=== PATIENT | male | born 1945 | race Caucasian/White ===

== ENCOUNTER → 2016-07-20 | Outpatient (REF) | payer MEDICARE ==
[~2016-07-20] MED LIST: ASPI81TA85 PO; ATEN25TA PO; LISI5TAB PO; SIMV80TA PO; TORS20TA2 PO; WARF6TAB14 PO
[2016-07-20 11:44] LABS: BASO % 0.3 % (0.0-1.0); EOS # 0.1 K/mm3 (0.0-0.50); EOS % 3.6 % (0.0-3.0); LARGE UNSTAINED CELL # 0.1 K/mm3 (0.0-0.4); LARGE UNSTAINED CELL % 2.5 % (0.0-4.0); LYMPH # 0.8 K/mm3 (1.5-4.5); LYMPH % 17.2 % (24.0-44.0); MEAN CORPUSCULAR HGB CONC 33.1 g/dl (32.0-36.5); MEAN CORPUSCULAR VOLUME 93.5 fl (80.0-96.0); MONO # 0.2 K/mm3 (0.0-0.8); MONO % 5.9 % (0.0-5.0); NEUTROPHILS # 2.8 K/mm3 (1.8-7.7); NEUTROPHILS % 70.5 % (36.0-66.0); PLATELET COUNT, AUTOMATED 190 k/mm3 (150-450); RED CELL DISTRIBUTION WIDTH 13.6 % (11.5-14.5); WHITE BLOOD COUNT 3.9 K/mm3 (4.0-10.0)
[2016-07-20 11:57] LABS: ALBUMIN 3.8 GM/DL (3.2-5.2); ALBUMIN/GLOBULIN RATIO 1.12 (1.00-1.93); BILIRUBIN,TOTAL 0.4 MG/DL (0.2-1.0); CREATININE FOR GFR 1.31 MG/DL (0.70-1.30); GLOMERULAR FILTRATION RATE 57.6 (>42); POTASSIUM SERUM 4.6 MEQ/L (3.5-5.1); TOTAL PROTEIN 7.2 GM/DL (6.4-8.2)
== END ==
LOC: M SFHCPLAZ 08:58
PROVIDERS: ATTEND Family Medicine
DX: I10 Essential (primary) hypertension (principal); R73.01 Impaired fasting glucose; E55.9 Vitamin D deficiency, unspecified

== ENCOUNTER → 2016-12-11 | Outpatient (REF) | payer MEDICARE ==
[2016-12-11 11:27] LABS: BASO % 0.6 % (0.0-1.0); EOS # 0.1 K/mm3 (0.0-0.50); EOS % 4.3 % (0.0-3.0); LARGE UNSTAINED CELL % 1.4 % (0.0-4.0); LYMPH # 0.6 K/mm3 (1.5-4.5); LYMPH % 18.2 % (24.0-44.0); MEAN CORPUSCULAR HEMOGLOBIN 32.8 pg (27.0-33.0); MEAN CORPUSCULAR HGB CONC 34.3 g/dl (32.0-36.5); MEAN CORPUSCULAR VOLUME 95.7 fl (80.0-96.0); MONO # 0.2 K/mm3 (0.0-0.8); MONO % 5.8 % (0.0-5.0); NEUTROPHILS # 2.2 K/mm3 (1.8-7.7); NEUTROPHILS % 69.7 % (36.0-66.0); PLATELET COUNT, AUTOMATED 199 k/mm3 (150-450); RED CELL DISTRIBUTION WIDTH 13.6 % (11.5-14.5); RETIC HEMOGLOBIN CONTENT CHr 32.3 PG (24-36); RETICULOCYTE ABSOLUTE ADVIA212 61 x10(9)/L (17-77); WHITE BLOOD COUNT 3.2 K/mm3 (4.0-10.0)
[2016-12-11 11:40] LABS: CHOLESTEROL LEVEL 114 MG/DL (<200); FERRITIN 105 NG/ML (26-388); PERCENT SATURATION 34.1 % (19.7-50.0); TOTAL IRON BINDING CAPACITY 267 UG/DL (250-450); TOTAL PROTEIN 7.4 GM/DL (6.4-8.2); TRIGLYCERIDES LEVEL 70 MG/DL (<150)
[2016-12-13 00:06] LABS: FREE KAPPA LIGHT CHAINS SERUM 129.3 mg/L (3.3-19.4); KAPPA/LAMBDA RATIO SERUM 7.61 (0.26-1.65)
[2016-12-13 11:59] LABS: ALBUMIN % 55.4 % (55.8-66.1)
[2016-12-13 12:00] LABS: GAMMA GLOBULIN % 20.7 % (11.1-18.8)
== END ==
LOC: M SFHCPLAZ 08:18
PROVIDERS: ATTEND Family Medicine
DX: D72.819 Decreased white blood cell count, unspecified (principal); D47.2 Monoclonal gammopathy; E78.2 Mixed hyperlipidemia; Z12.5 Encounter for screening for malignant neoplasm of prostate; E55.9 Vitamin D deficiency, unspecified
CPT/HCPCS: 36415; 80061; 82306; 82728; 83550; 83883; 83970; 84165; 85025; 85046; G0103

== ENCOUNTER → 2017-03-22 | Outpatient (CLI) | payer MEDICARE ==
[2017-03-22 13:35] LABS: MEAN CORPUSCULAR HEMOGLOBIN 31.8 pg (27.0-33.0); MEAN CORPUSCULAR HGB CONC 33.8 g/dl (32.0-36.5); MEAN CORPUSCULAR VOLUME 94.2 fl (80.0-96.0); PLATELET COUNT, AUTOMATED 219 10^3/uL (150-450)
[2017-03-22 14:07] LABS: ANION GAP 5 MEQ/L (8-16); BLOOD UREA NITROGEN 33 MG/DL (7-18); CALCIUM LEVEL 9.3 MG/DL (8.8-10.2); CARBON DIOXIDE LEVEL 31 MEQ/L (21-32); CHLORIDE LEVEL 107 MEQ/L (98-107); CREATININE FOR GFR 1.23 MG/DL (0.70-1.30); GLOMERULAR FILTRATION RATE > 60.0 (>42); GLUCOSE, FASTING 96 MG/DL (83-110); POTASSIUM SERUM 4.7 MEQ/L (3.5-5.1); SODIUM LEVEL 143 MEQ/L (136-145)
== END ==
LOC: M LAB 13:09
PROVIDERS: ATTEND Internal Medicine Cardiovascular Disease
DX: I47.2 Ventricular tachycardia (principal)

== ENCOUNTER → 2017-04-04 | Outpatient (CLI) | payer MEDICARE ==
[2017-04-04 13:03] LABS: INR 1.39
== END ==
LOC: M LAB 11:53
PROVIDERS: ATTEND Internal Medicine Cardiovascular Disease
DX: I48.91 Unspecified atrial fibrillation (principal)

== ENCOUNTER → 2017-04-16 | Outpatient (REF) | payer MEDICARE ==
[2017-04-16 11:25] LABS: BASO % 0.5 % (0.0-1.0); EOS # 0.2 10^3/uL (0.0-0.50); IMMATURE GRANULOCYTE % 0.2 % (0-0); LYMPH # 0.6 10^3/uL (1.5-4.5); MEAN CORPUSCULAR HEMOGLOBIN 31.6 pg (27.0-33.0); MEAN CORPUSCULAR HGB CONC 33.7 g/dl (32.0-36.5); MEAN CORPUSCULAR VOLUME 93.9 fl (80.0-96.0); MONO # 0.3 10^3/uL (0.0-0.8); MONO % 7.2 % (0.0-5.0); NEUTROPHILS # 3.2 10^3/uL (1.8-7.7); NEUTROPHILS % 74.1 % (36.0-66.0); PLATELET COUNT, AUTOMATED 210 10^3/uL (150-450); RED CELL DISTRIBUTION WIDTH 13.3 % (11.5-14.5); WHITE BLOOD COUNT 4.3 10^3/uL (4.0-10.0)
[2017-04-16 12:00] LABS: ALBUMIN 3.9 GM/DL (3.2-5.2); ALBUMIN/GLOBULIN RATIO 1.08 (1.00-1.93); ALKALINE PHOSPHATASE 86 U/L (45-117); ALT/SGPT 23 U/L (12-78); ANION GAP 6 MEQ/L (8-16); AST/SGOT 21 U/L (7-37); BILIRUBIN,TOTAL 0.5 MG/DL (0.2-1.0); BLOOD UREA NITROGEN 33 MG/DL (7-18); CALCIUM LEVEL 9.2 MG/DL (8.8-10.2); CARBON DIOXIDE LEVEL 29 MEQ/L (21-32); CHLORIDE LEVEL 109 MEQ/L (98-107); CREATININE FOR GFR 1.14 MG/DL (0.70-1.30); GLOMERULAR FILTRATION RATE > 60.0 (>42); GLUCOSE, FASTING 97 MG/DL (83-110); IMMUNOGLOBULIN G 1630 MG/DL (681-1648); IMMUNOGLOBULIN M 61.9 MG/DL (40-230); POTASSIUM SERUM 4.2 MEQ/L (3.5-5.1); SODIUM LEVEL 144 MEQ/L (136-145); TOTAL PROTEIN 7.5 GM/DL (6.4-8.2)
== END ==
LOC: M SFHCPLAZ 08:40
PROVIDERS: ATTEND Family Medicine
DX: D47.2 Monoclonal gammopathy (principal); E55.9 Vitamin D deficiency, unspecified; R73.01 Impaired fasting glucose

== ENCOUNTER → 2017-08-16 | Outpatient (REF) | payer MEDICARE ==
[2017-08-16 11:30] LABS: BASO % 0.2 % (0.0-1.0); EOS # 0.1 10^3/uL (0.0-0.50); HEMATOCRIT 38.2 % (42.0-52.0); IMMATURE GRANULOCYTE % 0.2 % (0-3.0); LYMPH # 0.8 10^3/uL (1.5-4.5); LYMPH % 17.2 % (24.0-44.0); MEAN CORPUSCULAR HEMOGLOBIN 31.4 pg (27.0-33.0); MEAN CORPUSCULAR VOLUME 92.3 fl (80.0-96.0); MONO # 0.3 10^3/uL (0.0-0.8); MONO % 7.4 % (0.0-5.0); NEUTROPHILS # 3.1 10^3/uL (1.8-7.7); PLATELET COUNT, AUTOMATED 202 10^3/uL (150-450); RED BLOOD COUNT 4.14 10^6/uL (4.30-6.10); RED CELL DISTRIBUTION WIDTH 13.2 % (11.5-14.5); WHITE BLOOD COUNT 4.4 10^3/uL (4.0-10.0)
[2017-08-16 12:24] LABS: ALBUMIN 3.9 GM/DL (3.2-5.2); ALBUMIN/GLOBULIN RATIO 1.03 (1.00-1.93); ALKALINE PHOSPHATASE 93 U/L (45-117); ALT/SGPT 22 U/L (12-78); ANION GAP 4 MEQ/L (8-16); AST/SGOT 18 U/L (7-37); BILIRUBIN,TOTAL 0.5 MG/DL (0.2-1.0); BLOOD UREA NITROGEN 29 MG/DL (7-18); CALCIUM LEVEL 9.4 MG/DL (8.8-10.2); CARBON DIOXIDE LEVEL 31 MEQ/L (21-32); CHLORIDE LEVEL 108 MEQ/L (98-107); CREATININE FOR GFR 1.25 MG/DL (0.70-1.30); GLOMERULAR FILTRATION RATE > 60.0 (>42); GLUCOSE, FASTING 87 MG/DL (70-100); MAGNESIUM LEVEL 2.4 MG/DL (1.8-2.4); POTASSIUM SERUM 4.6 MEQ/L (3.5-5.1); PSA SCREENING 1.48 NG/ML (< 4.0); SODIUM LEVEL 143 MEQ/L (136-145); TOTAL PROTEIN 7.7 GM/DL (6.4-8.2)
[2017-08-18 00:06] LABS: FREE KAPPA LIGHT CHAINS SERUM 143.3 mg/L (3.3-19.4); FREE LAMBDA LIGHT CHAINS SERUM 15.7 mg/L (5.7-26.3); KAPPA/LAMBDA RATIO SERUM 9.13 (0.26-1.65)
[2017-08-18 00:06] LABS: INSULIN LEVEL 14.6 uIU/mL (2.6-24.9)
[2017-08-20 00:06] LABS: FREE KAPPA LIGHT CHAINS URINE 5.33 mg/L (1.35-24.19); FREE LAMBDA LIGHT CHAINS URINE 0.19 mg/L (0.24-6.66); KAPPA/LAMBDA RATIO URINE 28.05 (2.04-10.37)
== END ==
LOC: M SFHCPLAZ 09:53
DX: Z12.5 Encounter for screening for malignant neoplasm of prostate (principal); D47.2 Monoclonal gammopathy; E78.2 Mixed hyperlipidemia
CPT/HCPCS: 83525

== ENCOUNTER 2017-12-30 15:53 | Inpatient (IN) | payer MEDICARE ==
[~2017-12-30 15:53] MED LIST changes: +ACETAMINOPHEN 500 MG TAB PO; -ASPI81TA85 PO; -ATEN25TA PO; -LISI5TAB PO; +NORCO, ANEXSIA 5/325MG TABLET (HYDROcodone/ACETAMINOPHEN) PO; +ONDANSETRON 4MG/2ML VIAL (J2405) IV; -SIMV80TA PO; -TORS20TA2 PO; -WARF6TAB14 PO
[2017-12-30] MEDS ORDERED: HEPARIN SOD (PORCINE) 5000 UNITS/ML VIAL IV (16:00)
[2017-12-30 17:40] LABS: BASO % 0.4 % (0.0-1.0); EOS # 0.1 10^3/uL (0.0-0.50); EOS % 2.2 % (0.0-3.0); HEMATOCRIT 38.3 % (42.0-52.0); HEMOGLOBIN 13.4 g/dl (13.5-17.5); IMMATURE GRANULOCYTE % 0.6 % (0-3.0); LYMPH # 0.9 10^3/uL (1.5-4.5); LYMPH % 19.4 % (24.0-44.0); MEAN CORPUSCULAR HEMOGLOBIN 32.6 pg (27.0-33.0); MEAN CORPUSCULAR VOLUME 93.2 fl (80.0-96.0); MONO # 0.4 10^3/uL (0.0-0.8); MONO % 8.4 % (0.0-5.0); NEUTROPHILS # 3.2 10^3/uL (1.8-7.7); PLATELET COUNT, AUTOMATED 207 10^3/uL (150-450); RED BLOOD COUNT 4.11 10^6/uL (4.30-6.10); RED CELL DISTRIBUTION WIDTH 12.7 % (11.5-14.5); WHITE BLOOD COUNT 4.6 10^3/uL (4.0-10.0)
[2017-12-30] MEDS: SUPREP BOWEL PREP PO (17:50)
[2017-12-30 17:57] LABS: INR 2.23; PROTHROMBIN TIME 25.1 SECONDS (12.1-14.4)
[2017-12-30 17:57] LABS: PARTIAL THROMBOPLASTIN TIME 34.3 SECONDS (25.4-37.6)
[2017-12-30] MEDS: HEPARIN DRIP 25,000 UNITS in APPROPRIATE DILUENT 1 EA IV (19:50)
[2017-12-30] MEDS: SOTALOL 40MG PER 1/2 TABLET PO (22:09)
[2017-12-30] MEDS: SIMVASTATIN 40 MG TAB PO (22:09)
[2017-12-30 22:23] LABS: PARTIAL THROMBOPLASTIN TIME 85.1 SECONDS (25.4-37.6)
[2017-12-31 00:35] LABS: ALBUMIN 4.2 GM/DL (3.2-5.2); ALBUMIN/GLOBULIN RATIO 1.14 (1.00-1.93); ALKALINE PHOSPHATASE 76 U/L (45-117); ALT/SGPT 22 U/L (12-78); ANION GAP 8 MEQ/L (8-16); AST/SGOT 17 U/L (7-37); BILIRUBIN,TOTAL 0.6 MG/DL (0.2-1.0); BLOOD UREA NITROGEN 30 MG/DL (7-18); CALCIUM LEVEL 9.7 MG/DL (8.8-10.2); CARBON DIOXIDE LEVEL 29 MEQ/L (21-32); CHLORIDE LEVEL 105 MEQ/L (98-107); CREATININE FOR GFR 1.38 MG/DL (0.70-1.30); GLOMERULAR FILTRATION RATE 53.9 (>42); GLUCOSE, FASTING 93 MG/DL (70-100); POTASSIUM SERUM 4.3 MEQ/L (3.5-5.1); SODIUM LEVEL 142 MEQ/L (136-145); TOTAL PROTEIN 7.9 GM/DL (6.4-8.2)
[2017-12-31 03:15] LABS: PARTIAL THROMBOPLASTIN TIME 192.8 SECONDS (25.4-37.6)
[2017-12-31] MEDS: TORSEMIDE 20 MG TAB PO ×2 (05:45→17:14)
[2017-12-31 07:06] LABS: BASO % 0.5 % (0.0-1.0); EOS # 0.2 10^3/uL (0.0-0.50); EOS % 2.5 % (0.0-3.0); IMMATURE GRANULOCYTE % 0.3 % (0-3.0); LYMPH # 1.4 10^3/uL (1.5-4.5); LYMPH % 22.1 % (24.0-44.0); MEAN CORPUSCULAR HEMOGLOBIN 31.9 pg (27.0-33.0); MEAN CORPUSCULAR VOLUME 91.1 fl (80.0-96.0); MONO # 0.4 10^3/uL (0.0-0.8); MONO % 6.5 % (0.0-5.0); NEUTROPHILS # 4.4 10^3/uL (1.8-7.7); NEUTROPHILS % 68.1 % (36.0-66.0); PLATELET COUNT, AUTOMATED 230 10^3/uL (150-450); RED BLOOD COUNT 4.39 10^6/uL (4.30-6.10); RED CELL DISTRIBUTION WIDTH 12.6 % (11.5-14.5); WHITE BLOOD COUNT 6.4 10^3/uL (4.0-10.0)
[2017-12-31 07:17] LABS: INR 2.12; PROTHROMBIN TIME 24.2 SECONDS (12.1-14.4)
[2017-12-31 08:08] LABS: ALBUMIN 4.3 GM/DL (3.2-5.2); ALKALINE PHOSPHATASE 81 U/L (45-117); ALT/SGPT 23 U/L (12-78); ANION GAP 7 MEQ/L (8-16); AST/SGOT 22 U/L (7-37); BILIRUBIN,TOTAL 0.7 MG/DL (0.2-1.0); BLOOD UREA NITROGEN 27 MG/DL (7-18); CARBON DIOXIDE LEVEL 30 MEQ/L (21-32); CHLORIDE LEVEL 101 MEQ/L (98-107); CREATININE FOR GFR 1.37 MG/DL (0.70-1.30); GLOMERULAR FILTRATION RATE 54.4 (>42); GLUCOSE, FASTING 95 MG/DL (70-100); POTASSIUM SERUM 4.1 MEQ/L (3.5-5.1); SODIUM LEVEL 138 MEQ/L (136-145); TOTAL PROTEIN 8.8 GM/DL (6.4-8.2)
[2017-12-31 09:56] LABS: ALBUMIN/GLOBULIN RATIO 1.05 (1.00-1.93)
[2017-12-31] MEDS: INFLUENZA VIRUS VACCINE HIGH DOSE 0.5 ML SYRINGE (90662) IM (11:50)
[2017-12-31] MEDS: ASPIRIN 81 MG ENTERIC TAB PO (11:50)
[2017-12-31] MEDS: SOTALOL 40MG PER 1/2 TABLET PO ×2 (11:51→21:37)
[2017-12-31] MEDS: ISOSORBIDE MON. (IMDUR) 30 MG XR TAB PO (11:51)
[2017-12-31] MEDS ORDERED: PROPOFOL 200 MG/20 ML VIAL ×3 (14:57→15:54)
[2017-12-31 15:35] LABS: PARTIAL THROMBOPLASTIN TIME 33.7 SECONDS (25.4-37.6)
[2017-12-31] MEDS ORDERED: ePHEDrine SULFATE 25 MG/5 ML(5MG/ML) SYRINGE (15:55)
[2017-12-31] MEDS: WARFARIN SOD 3 MG TAB PO (18:29)
[2017-12-31] MEDS: HEPARIN DRIP 25,000 UNITS in APPROPRIATE DILUENT 1 EA IV (18:30)
[2017-12-31] MEDS: SIMVASTATIN 40 MG TAB PO (21:37)
[2018-01-01 01:01] LABS: PARTIAL THROMBOPLASTIN TIME 86.2 SECONDS (25.4-37.6)
[2018-01-01] MEDS: TORSEMIDE 20 MG TAB PO ×2 (05:37→17:36)
[2018-01-01 07:03] LABS: PARTIAL THROMBOPLASTIN TIME 101.1 SECONDS (25.4-37.6)
[2018-01-01] MEDS: ISOSORBIDE MON. (IMDUR) 30 MG XR TAB PO (08:29)
[2018-01-01] MEDS: SOTALOL 40MG PER 1/2 TABLET PO ×2 (08:29→20:41)
[2018-01-01] MEDS: ASPIRIN 81 MG ENTERIC TAB PO (08:29)
[2018-01-01 09:00] LABS: INR 2.35; PROTHROMBIN TIME 26.2 SECONDS (12.1-14.4)
[2018-01-01 16:19] LABS: PARTIAL THROMBOPLASTIN TIME 100.1 SECONDS (25.4-37.6)
[2018-01-01] MEDS: HEPARIN DRIP 25,000 UNITS in APPROPRIATE DILUENT 1 EA IV (16:25)
[2018-01-01] MEDS: WARFARIN SOD 3 MG TAB PO (17:36)
[2018-01-01] MEDS: SIMVASTATIN 40 MG TAB PO (20:40)
[2018-01-02] MEDS: TORSEMIDE 20 MG TAB PO ×2 (05:55→17:21)
[2018-01-02 06:37] LABS: INR 2.36; PROTHROMBIN TIME 26.3 SECONDS (12.1-14.4)
[2018-01-02 06:40] LABS: PARTIAL THROMBOPLASTIN TIME 113.9 SECONDS (25.4-37.6)
[2018-01-02] MEDS: SOTALOL 40MG PER 1/2 TABLET PO ×2 (08:22→21:08)
[2018-01-02] MEDS: ASPIRIN 81 MG ENTERIC TAB PO (08:22)
[2018-01-02] MEDS: ISOSORBIDE MON. (IMDUR) 30 MG XR TAB PO (08:22)
[2018-01-02 11:22] LABS: HEMATOCRIT 33.4 % (42.0-52.0); HEMOGLOBIN 11.7 g/dl (13.5-17.5); MEAN CORPUSCULAR HEMOGLOBIN 31.7 pg (27.0-33.0); MEAN CORPUSCULAR VOLUME 90.5 fl (80.0-96.0); PLATELET COUNT, AUTOMATED 151 10^3/uL (150-450); RED BLOOD COUNT 3.69 10^6/uL (4.30-6.10); RED CELL DISTRIBUTION WIDTH 12.6 % (11.5-14.5); WHITE BLOOD COUNT 3.7 10^3/uL (4.0-10.0)
[2018-01-02 15:46] LABS: PARTIAL THROMBOPLASTIN TIME 69.5 SECONDS (25.4-37.6)
[2018-01-02] MEDS: HEPARIN DRIP 25,000 UNITS in APPROPRIATE DILUENT 1 EA IV (16:41)
[2018-01-02] MEDS ORDERED: WARFARIN SOD 3 MG TAB PO (17:00)
[2018-01-02] MEDS: WARFARIN SOD 3 MG TAB PO (17:21)
[2018-01-02] MEDS: SIMVASTATIN 40 MG TAB PO (21:08)
[2018-01-02 22:06] LABS: PARTIAL THROMBOPLASTIN TIME 64.3 SECONDS (25.4-37.6)
[2018-01-03] MEDS: ANUSOL HC 25MG SUPP PR (01:39)
[2018-01-03] MEDS: TORSEMIDE 20 MG TAB PO (05:10)
[2018-01-03 06:39] LABS: HEMATOCRIT 35.9 % (42.0-52.0); HEMOGLOBIN 12.6 g/dl (13.5-17.5); MEAN CORPUSCULAR HEMOGLOBIN 31.9 pg (27.0-33.0); MEAN CORPUSCULAR HGB CONC 35.1 g/dl (32.0-36.5); MEAN CORPUSCULAR VOLUME 90.9 fl (80.0-96.0); PLATELET COUNT, AUTOMATED 164 10^3/uL (150-450); RED BLOOD COUNT 3.95 10^6/uL (4.30-6.10); RED CELL DISTRIBUTION WIDTH 12.8 % (11.5-14.5)
[2018-01-03 06:53] LABS: INR 2.18; PARTIAL THROMBOPLASTIN TIME 32.1 SECONDS (25.4-37.6); PROTHROMBIN TIME 24.7 SECONDS (12.1-14.4)
[2018-01-03 07:08] LABS: ALBUMIN 3.7 GM/DL (3.2-5.2); ALBUMIN/GLOBULIN RATIO 0.86 (1.00-1.93); ALKALINE PHOSPHATASE 82 U/L (45-117); ALT/SGPT 24 U/L (12-78); ANION GAP 4 MEQ/L (8-16); AST/SGOT 20 U/L (7-37); BILIRUBIN,TOTAL 0.3 MG/DL (0.2-1.0); BLOOD UREA NITROGEN 21 MG/DL (7-18); CALCIUM LEVEL 9.3 MG/DL (8.8-10.2); CARBON DIOXIDE LEVEL 30 MEQ/L (21-32); CHLORIDE LEVEL 105 MEQ/L (98-107); CREATININE FOR GFR 1.24 MG/DL (0.70-1.30); GLOMERULAR FILTRATION RATE > 60.0 (>42); GLUCOSE, FASTING 102 MG/DL (70-100); POTASSIUM SERUM 3.8 MEQ/L (3.5-5.1); SODIUM LEVEL 139 MEQ/L (136-145)
[2018-01-03] MEDS: ASPIRIN 81 MG ENTERIC TAB PO (09:05)
[2018-01-03] MEDS: SOTALOL 40MG PER 1/2 TABLET PO (09:05)
[2018-01-03] MEDS: ISOSORBIDE MON. (IMDUR) 30 MG XR TAB PO (09:05)
[2018-01-03 10:33] LABS: INR 2.31; PROTHROMBIN TIME 25.8 SECONDS (12.1-14.4)
== END 2018-01-03 11:24 | disposition home or self-care (01) | DRG 949 ==
LOC: M MSPAV 01-02 22:33
PROC: 0DBP8ZX Excision of Rectum, Via Natural or Artificial Opening Endoscopic, Diagnostic (ICD-10-PCS; principal; 2017-12-31 15:30)
DX: Z51.81 Encounter for therapeutic drug level monitoring (principal); I50.32 Chronic diastolic (congestive) heart failure; Z68.43 Body mass index [BMI] 50.0-59.9, adult; I13.0 Hypertensive heart and chronic kidney disease with heart failure and stage 1 through stage 4 chronic kidney disease, or unspecified chronic kidney disease; I25.810 Atherosclerosis of coronary artery bypass graft(s) without angina pectoris; E66.9 Obesity, unspecified; G47.33 Obstructive sleep apnea (adult) (pediatric); Z79.01 Long term (current) use of anticoagulants; Z95.2 Presence of prosthetic heart valve; M17.0 Bilateral primary osteoarthritis of knee; N18.3 Chronic kidney disease, stage 3 (moderate); E53.8 Deficiency of other specified B group vitamins; E55.9 Vitamin D deficiency, unspecified; E78.2 Mixed hyperlipidemia; D64.9 Anemia, unspecified; K57.30 Diverticulosis of large intestine without perforation or abscess without bleeding; K62.1 Rectal polyp

== ENCOUNTER → 2018-01-27 | Outpatient (CLI) | payer MEDICARE ==
[2018-01-27 09:33] LABS: ALBUMIN 3.9 GM/DL (3.2-5.2); ALBUMIN/GLOBULIN RATIO 1.22 (1.00-1.93); ALKALINE PHOSPHATASE 76 U/L (45-117); ALT/SGPT 23 U/L (12-78); ANION GAP 6 MEQ/L (8-16); AST/SGOT 18 U/L (7-37); BILIRUBIN,TOTAL 0.5 MG/DL (0.2-1.0); BLOOD UREA NITROGEN 21 MG/DL (7-18); CALCIUM LEVEL 9.6 MG/DL (8.8-10.2); CARBON DIOXIDE LEVEL 31 MEQ/L (21-32); CHLORIDE LEVEL 108 MEQ/L (98-107); CREATININE FOR GFR 1.16 MG/DL (0.70-1.30); GLOMERULAR FILTRATION RATE > 60.0 (>42); GLUCOSE, FASTING 93 MG/DL (70-100); POTASSIUM SERUM 4.2 MEQ/L (3.5-5.1); SODIUM LEVEL 145 MEQ/L (136-145); TOTAL PROTEIN 7.1 GM/DL (6.4-8.2)
[2018-01-27 09:37] LABS: HEMATOCRIT 35.6 % (42.0-52.0); HEMOGLOBIN 11.9 g/dl (13.5-17.5); MEAN CORPUSCULAR HEMOGLOBIN 31.5 pg (27.0-33.0); MEAN CORPUSCULAR HGB CONC 33.4 g/dl (32.0-36.5); MEAN CORPUSCULAR VOLUME 94.2 fl (80.0-96.0); PLATELET COUNT, AUTOMATED 182 10^3/uL (150-450); RED BLOOD COUNT 3.78 10^6/uL (4.30-6.10); RED CELL DISTRIBUTION WIDTH 13.1 % (11.5-14.5); WHITE BLOOD COUNT 4.3 10^3/uL (4.0-10.0)
[2018-01-27 09:54] LABS: INR 3.38
[2018-01-27 10:01] LABS: ERYTHROCYTE SEDIMENTATION RATE 49 mm/hr (0-20)
== END ==
LOC: M LAB 07:54
DX: E78.00 Pure hypercholesterolemia, unspecified (principal); I11.9 Hypertensive heart disease without heart failure; E11.9 Type 2 diabetes mellitus without complications

== ENCOUNTER → 2018-01-27 | Outpatient (CLI) | payer MEDICARE ==
[2018-01-27 09:32] LABS: ALBUMIN 3.8 GM/DL (3.2-5.2); ALBUMIN/GLOBULIN RATIO 1.12 (1.00-1.93); ALKALINE PHOSPHATASE 82 U/L (45-117); ALT/SGPT 20 U/L (12-78); ANION GAP 6 MEQ/L (8-16); AST/SGOT 18 U/L (7-37); BILIRUBIN,TOTAL 0.5 MG/DL (0.2-1.0); BLOOD UREA NITROGEN 22 MG/DL (7-18); CALCIUM LEVEL 9.6 MG/DL (8.8-10.2); CARBON DIOXIDE LEVEL 30 MEQ/L (21-32); CHLORIDE LEVEL 109 MEQ/L (98-107); CREATININE FOR GFR 1.19 MG/DL (0.70-1.30); FERRITIN 69 NG/ML (26-388); GLOMERULAR FILTRATION RATE > 60.0 (>42); GLUCOSE, FASTING 92 MG/DL (70-100); IRON (FE) 82 UG/DL (65-175); PERCENT SATURATION 30.6 % (19.7-50.0); POTASSIUM SERUM 3.9 MEQ/L (3.5-5.1); SODIUM LEVEL 145 MEQ/L (136-145); TOTAL IRON BINDING CAPACITY 268 UG/DL (250-450); TOTAL PROTEIN 7.2 GM/DL (6.4-8.2)
[2018-01-27 09:39] LABS: BASO % 0.2 % (0.0-1.0); EOS # 0.2 10^3/uL (0.0-0.50); EOS % 3.8 % (0.0-3.0); HEMATOCRIT 35.3 % (42.0-52.0); IMMATURE GRANULOCYTE % 0.2 % (0-3.0); LYMPH # 0.7 10^3/uL (1.5-4.5); LYMPH % 16.2 % (24.0-44.0); MEAN CORPUSCULAR HEMOGLOBIN 32.1 pg (27.0-33.0); MEAN CORPUSCULAR VOLUME 94.4 fl (80.0-96.0); MONO # 0.3 10^3/uL (0.0-0.8); MONO % 7.1 % (0.0-5.0); NEUTROPHILS # 3.1 10^3/uL (1.8-7.7); NEUTROPHILS % 72.5 % (36.0-66.0); PLATELET COUNT, AUTOMATED 188 10^3/uL (150-450); RED BLOOD COUNT 3.74 10^6/uL (4.30-6.10); RED CELL DISTRIBUTION WIDTH 13.2 % (11.5-14.5); WHITE BLOOD COUNT 4.3 10^3/uL (4.0-10.0)
[2018-01-27 09:54] LABS: INR 3.31; PROTHROMBIN TIME 34.4 SECONDS (12.1-14.4)
[2018-01-27 09:55] LABS: PARTIAL THROMBOPLASTIN TIME 41.1 SECONDS (25.4-37.6)
== END ==
LOC: M LAB 07:48
DX: D64.9 Anemia, unspecified (principal)
CPT/HCPCS: 71046

== ENCOUNTER → 2018-01-31 | Outpatient (CLI) | payer MEDICARE ==
[2018-01-31 10:26] LABS: INR 3.24; PROTHROMBIN TIME 33.8 SECONDS (12.1-14.4)
[2018-01-31 10:27] LABS: PARTIAL THROMBOPLASTIN TIME 41.4 SECONDS (25.4-37.6)
== END ==
LOC: M LAB 09:15
DX: Z95.2 Presence of prosthetic heart valve (principal)

== ENCOUNTER 2018-02-03 06:38 | Inpatient (IN) | payer MEDICARE ==
[~2018-02-03 06:38] MED LIST changes: -ACETAMINOPHEN 500 MG TAB PO; +LIDOCAINE 1% MDV 20ML VIAL SQ; -NORCO, ANEXSIA 5/325MG TABLET (HYDROcodone/ACETAMINOPHEN) PO; -ONDANSETRON 4MG/2ML VIAL (J2405) IV
[2018-02-03] MEDS ORDERED: LR 1,000 ML IV (06:45)
[2018-02-03 07:21] LABS: INR 1.62; PROTHROMBIN TIME 19.5 SECONDS (12.1-14.4)
[2018-02-03] MEDS ORDERED: MIDAZOLAM INJ 2 MG/2 ML VIAL (J2250) As Ordered ×2 (08:01→09:57)
[2018-02-03] MEDS ORDERED: fentaNYL 100 MCG/2 ML INJECTION (J3010) As Ordered ×2 (08:01→09:57)
[2018-02-03] MEDS: VANCOMYCIN HCL 1,000 MG, VIAL MATE ADAPTER 1 EACH in D5W 250 ML IV ×2 (09:00→20:02)
[2018-02-03 09:09] LABS: INR 1.86; PROTHROMBIN TIME 21.8 SECONDS (12.1-14.4)
[2018-02-03] MEDS ORDERED: PROPOFOL 200 MG/20 ML VIAL As Ordered (09:57)
[2018-02-03] MEDS ORDERED: SEVOFLURANE INHAL SOLN 250 ML BTL As Ordered (09:57)
[2018-02-03] MEDS ORDERED: fentaNYL 250 MCG/5 ML INJECTION (J3010) As Ordered (09:57)
[2018-02-03] MEDS ORDERED: DESFLURANE 240 ML INHALANT As Ordered (09:57)
[2018-02-03] MEDS ORDERED: ONDANSETRON 4MG/2ML VIAL (J2405) As Ordered (09:57)
[2018-02-03] MEDS ORDERED: dexameTHASONE 4 MG/ML 1ML VIAL (J1100) As Ordered (09:57)
[2018-02-03] MEDS ORDERED: ROCURONIUM BROMIDE 50 MG/5 ML VIAL As Ordered (09:57)
[2018-02-03] MEDS ORDERED: METOCLOPRAMIDE INJ 10MG/2ML VIAL (J2765) As Ordered (09:57)
[2018-02-03] MEDS ORDERED: LIDOCAINE 2% INJ 100 MG/5 ML SDV (FOR ANES.) As Ordered (09:57)
[2018-02-03] MEDS ORDERED: GLYCOPYRROLATE INJ 0.2 MG/ML 2 ML VIAL As Ordered (10:23)
[2018-02-03] MEDS: CLINDAMYCIN INJ 900MG/6ML VIAL As Ordered (10:23)
[2018-02-03] MEDS ORDERED: NEOSTIGMINE 10 MG/10 ML VIAL (J2710) As Ordered (10:23)
[2018-02-03] MEDS: EPINEPHrine INJ 1 MG/ML 1ML AMP As Ordered (10:24)
[2018-02-03] MEDS: TRANEXAMIC ACID 100 MG/ML 10ML VIAL As Ordered (10:24)
[2018-02-03] MEDS: BUPIVACAINE LIPOSOME/PF 1.3% 20 ML VIAL (13.3MG/ML)(EXPAREL) As Ordered (11:13)
[2018-02-03] MEDS: BUPIVACAINE HCL 0.25% 30 ML VIAL As Ordered (11:14)
[2018-02-03] MEDS ORDERED: PHENYLephrine HCL 500 MCG/5 ML (100MCG/ML) SYRINGE (J2370) As Ordered (11:22)
[2018-02-03] MEDS ORDERED: MORPHINE 1MG/ML IN 0.9% NACL 100ML IV BAG As Ordered (11:33)
[2018-02-03] MEDS ORDERED: ONDANSETRON 4MG/2ML VIAL (J2405) IV ×2 (12:00→12:15)
[2018-02-03] MEDS ORDERED: PERCOCET 5MG/325MG TAB PO (12:00)
[2018-02-03] MEDS ORDERED: fentaNYL 100 MCG/2 ML INJECTION (J3010) IV (12:00)
[2018-02-03] MEDS ORDERED: NALOXONE INJ 0.4 MG/1 ML VIAL (J2310) IV (12:15)
[2018-02-03] MEDS ORDERED: diphenhydrAMINE INJ 50MG/ML VIAL (J1200) IV (12:15)
[2018-02-03] MEDS ORDERED: MORPHINE 1MG/ML IN 0.9% NACL 100ML IV BAG IV (12:15)
[2018-02-03] MEDS ORDERED: FLEET ENEMA PR (12:15)
[2018-02-03] MEDS: LR 1,000 ML IV ×2 (12:15→15:04)
[2018-02-03] MEDS ORDERED: ACETAMINOPHEN TAB 650MG DOSE (2X325MG) PO (12:15)
[2018-02-03] MEDS ORDERED: NALBUPHINE HCL 10 MG/ML AMP (J2300) IV (12:15)
[2018-02-03] MEDS ORDERED: EPIDURAL/PCA KEYS XX (12:15)
[2018-02-03] MEDS: ACETAMINOPHEN 500 MG TAB PO (15:03)
[2018-02-03] MEDS ORDERED: WARFARIN SOD 5 MG TAB PO (17:00)
[2018-02-03] MEDS: LISINOPRIL 20 MG TAB PO (17:17)
[2018-02-03] MEDS: TORSEMIDE 20 MG TAB PO (17:17)
[2018-02-03] MEDS: ISOSORBIDE MON. (IMDUR) 30 MG XR TAB PO (17:17)
[2018-02-03] MEDS: WARFARIN SOD 3 MG TAB PO (17:18)
[2018-02-03] MEDS: SIMVASTATIN 40 MG TAB PO (20:03)
[2018-02-03] MEDS: SOTALOL 40MG PER 1/2 TABLET PO (20:03)
[2018-02-04] MEDS: LR 1,000 ML IV (00:45)
[2018-02-04] MEDS: HEPARIN SOD (PORCINE) 5000 UNITS/ML VIAL SQ ×3 (05:57→21:38)
[2018-02-04 06:52] LABS: HEMOGLOBIN 10.8 g/dl (13.5-17.5); MEAN CORPUSCULAR HGB CONC 32.7 g/dl (32.0-36.5); MEAN CORPUSCULAR VOLUME 97.6 fl (80.0-96.0); PLATELET COUNT, AUTOMATED 253 10^3/uL (150-450); RED BLOOD COUNT 3.38 10^6/uL (4.30-6.10); WHITE BLOOD COUNT 12.8 10^3/uL (4.0-10.0)
[2018-02-04 07:01] LABS: PROTHROMBIN TIME 22.1 SECONDS (12.1-14.4)
[2018-02-04 07:14] LABS: ALBUMIN 3.5 GM/DL (3.2-5.2); ANION GAP 6 MEQ/L (8-16); BLOOD UREA NITROGEN 27 MG/DL (7-18); CALCIUM LEVEL 8.9 MG/DL (8.8-10.2); CARBON DIOXIDE LEVEL 31 MEQ/L (21-32); CHLORIDE LEVEL 105 MEQ/L (98-107); CREATININE FOR GFR 2.23 MG/DL (0.70-1.30); GLUCOSE, FASTING 131 MG/DL (70-100); PHOSPHORUS LEVEL 4.3 MG/DL (2.5-4.9); POTASSIUM SERUM 4.3 MEQ/L (3.5-5.1); SODIUM LEVEL 142 MEQ/L (136-145)
[2018-02-04] MEDS: MOM 30ML SUSPENSION UDC PO (09:00)
[2018-02-04] MEDS: ONDANSETRON 4MG/2ML VIAL (J2405) IV (09:18)
[2018-02-04] MEDS: MIRALAX *UNIT DOSE* 17GM PACKET PO (11:03)
[2018-02-04] MEDS: SOTALOL 40MG PER 1/2 TABLET PO ×2 (11:03→21:37)
[2018-02-04] MEDS: TORSEMIDE 20 MG TAB PO (11:04)
[2018-02-04] MEDS: LISINOPRIL 20 MG TAB PO (11:04)
[2018-02-04] MEDS: ISOSORBIDE MON. (IMDUR) 30 MG XR TAB PO (11:05)
[2018-02-04] MEDS: SENOKOT S TAB PO ×2 (11:05→21:37)
[2018-02-04] MEDS: PERCOCET 5MG/325MG TAB PO ×2 (11:08→12:02)
[2018-02-04] MEDS: ONDANSETRON 4 MG TAB (S0181) PO (13:40)
[2018-02-04] MEDS ORDERED: ACETAMINOPHEN 500 MG TAB PO (15:45)
[2018-02-04] MEDS: FLEET ENEMA PR (15:45)
[2018-02-04] MEDS: WARFARIN SOD 3 MG TAB PO (16:51)
[2018-02-04] MEDS: METOCLOPRAMIDE INJ 10MG/2ML VIAL (J2765) IV ×2 (16:51→21:38)
[2018-02-04] MEDS: traMADol 50 MG TAB PO ×2 (16:52→21:38)
[2018-02-04] MEDS: ACETAMINOPHEN 500 MG TAB PO (21:37)
[2018-02-04] MEDS: SIMVASTATIN 40 MG TAB PO (21:38)
[2018-02-05] MEDS: traMADol 50 MG TAB PO ×3 (01:39→09:09)
[2018-02-05] MEDS: ONDANSETRON 4 MG TAB (S0181) PO (03:04)
[2018-02-05] MEDS: HEPARIN SOD (PORCINE) 5000 UNITS/ML VIAL SQ ×3 (05:26→21:12)
[2018-02-05] MEDS: ACETAMINOPHEN 500 MG TAB PO ×3 (05:27→21:13)
[2018-02-05 06:57] LABS: HEMATOCRIT 31.7 % (42.0-52.0); HEMOGLOBIN 10.5 g/dl (13.5-17.5); MEAN CORPUSCULAR HEMOGLOBIN 32.1 pg (27.0-33.0); MEAN CORPUSCULAR HGB CONC 33.1 g/dl (32.0-36.5); MEAN CORPUSCULAR VOLUME 96.9 fl (80.0-96.0); PLATELET COUNT, AUTOMATED 220 10^3/uL (150-450); RED BLOOD COUNT 3.27 10^6/uL (4.30-6.10)
[2018-02-05 07:12] LABS: INR 2.44
[2018-02-05 07:23] LABS: ALBUMIN 2.9 GM/DL (3.2-5.2); ANION GAP 9 MEQ/L (8-16); BLOOD UREA NITROGEN 58 MG/DL (7-18); CALCIUM LEVEL 8.4 MG/DL (8.8-10.2); CARBON DIOXIDE LEVEL 25 MEQ/L (21-32); CHLORIDE LEVEL 104 MEQ/L (98-107); CREATININE FOR GFR 3.79 MG/DL (0.70-1.30); GLOMERULAR FILTRATION RATE 16.8 (>42); GLUCOSE, FASTING 138 MG/DL (70-100); PHOSPHORUS LEVEL 4.7 MG/DL (2.5-4.9); POTASSIUM SERUM 4.1 MEQ/L (3.5-5.1); SODIUM LEVEL 138 MEQ/L (136-145)
[2018-02-05] MEDS: MOM 30ML SUSPENSION UDC PO (08:30)
[2018-02-05] MEDS: MIRALAX *UNIT DOSE* 17GM PACKET PO (08:30)
[2018-02-05] MEDS: METOCLOPRAMIDE INJ 10MG/2ML VIAL (J2765) IV ×4 (08:31→21:12)
[2018-02-05] MEDS: LISINOPRIL 20 MG TAB PO (08:34)
[2018-02-05] MEDS: SENOKOT S TAB PO ×2 (08:35→21:14)
[2018-02-05] MEDS: SOTALOL 40MG PER 1/2 TABLET PO ×2 (08:35→21:13)
[2018-02-05] MEDS: ISOSORBIDE MON. (IMDUR) 30 MG XR TAB PO (08:35)
[2018-02-05] MEDS: TORSEMIDE 20 MG TAB PO (09:00)
[2018-02-05] MEDS: BISACODYL 10 MG SUPP PR ×2 (10:59→21:14)
[2018-02-05] MEDS: LR 1,000 ML IV ×2 (11:00→21:12)
[2018-02-05] MEDS: WARFARIN SOD 3 MG TAB PO (17:40)
[2018-02-05] MEDS: SIMVASTATIN 40 MG TAB PO (21:14)
[2018-02-06] MEDS: ACETAMINOPHEN 500 MG TAB PO ×3 (05:38→21:06)
[2018-02-06] MEDS: LR 1,000 ML IV (05:38)
[2018-02-06 06:53] LABS: HEMATOCRIT 30.4 % (42.0-52.0); MEAN CORPUSCULAR HEMOGLOBIN 31.9 pg (27.0-33.0); MEAN CORPUSCULAR HGB CONC 32.9 g/dl (32.0-36.5); MEAN CORPUSCULAR VOLUME 97.1 fl (80.0-96.0); PLATELET COUNT, AUTOMATED 228 10^3/uL (150-450); RED BLOOD COUNT 3.13 10^6/uL (4.30-6.10); RED CELL DISTRIBUTION WIDTH 14.2 % (11.5-14.5); WHITE BLOOD COUNT 8.2 10^3/uL (4.0-10.0)
[2018-02-06 07:04] LABS: INR 4.27; PROTHROMBIN TIME 42.1 SECONDS (12.1-14.4)
[2018-02-06 07:24] LABS: ALBUMIN 2.5 GM/DL (3.2-5.2); ANION GAP 11 MEQ/L (8-16); BLOOD UREA NITROGEN 81 MG/DL (7-18); CARBON DIOXIDE LEVEL 26 MEQ/L (21-32); CHLORIDE LEVEL 100 MEQ/L (98-107); CREATININE FOR GFR 5.66 MG/DL (0.70-1.30); GLOMERULAR FILTRATION RATE 10.6 (>42); GLUCOSE, FASTING 108 MG/DL (70-100); PHOSPHORUS LEVEL 6.3 MG/DL (2.5-4.9); POTASSIUM SERUM 4.7 MEQ/L (3.5-5.1); SODIUM LEVEL 137 MEQ/L (136-145)
[2018-02-06] MEDS: METOCLOPRAMIDE INJ 10MG/2ML VIAL (J2765) IV (07:30)
[2018-02-06] MEDS: NS 1,000 ML IV ×3 (08:00→18:12)
[2018-02-06] MEDS: MOM 30ML SUSPENSION UDC PO (08:36)
[2018-02-06] MEDS: BISACODYL 10 MG SUPP PR ×2 (08:41→20:23)
[2018-02-06] MEDS: SENOKOT S TAB PO ×2 (08:41→21:06)
[2018-02-06] MEDS: ISOSORBIDE MON. (IMDUR) 30 MG XR TAB PO (08:47)
[2018-02-06] MEDS: MIRALAX *UNIT DOSE* 17GM PACKET PO (08:48)
[2018-02-06] MEDS: SOTALOL 40MG PER 1/2 TABLET PO ×2 (08:52→20:23)
[2018-02-06 12:11] LABS: LACTIC ACID SEPSIS PROTOCOL 1.1 MMOL/L (0.4-2.0)
[2018-02-06] MEDS ORDERED: WARFARIN SOD 3 MG TAB PO (17:00)
[2018-02-06 18:10] LABS: ANION GAP 10 MEQ/L (8-16); BLOOD UREA NITROGEN 88 MG/DL (7-18); CALCIUM LEVEL 7.8 MG/DL (8.8-10.2); CARBON DIOXIDE LEVEL 24 MEQ/L (21-32); CHLORIDE LEVEL 104 MEQ/L (98-107); CREATININE FOR GFR 5.55 MG/DL (0.70-1.30); GLOMERULAR FILTRATION RATE 10.8 (>42); GLUCOSE, FASTING 96 MG/DL (70-100); MAGNESIUM LEVEL 2.7 MG/DL (1.8-2.4); POTASSIUM SERUM 4.3 MEQ/L (3.5-5.1); SODIUM LEVEL 138 MEQ/L (136-145)
[2018-02-06] MEDS: SIMVASTATIN 40 MG TAB PO (21:06)
[2018-02-06 23:26] LABS: BACTERIA, URINE AUTO NEGATIVE (NEGATIVE); MUCUS, URINE SMALL (NEGATIVE); RBC, URINE AUTO 131 /HPF (0-3); SQUAMOUS EPITHELIAL CELL UR AU 0 /HPF (0-6); WBC, URINE AUTO 5 /HPF (0-3)
[2018-02-06 23:30] LABS: CHLORIDE,RANDOM URINE 45 MEQ/L
[2018-02-06 23:30] LABS: SODIUM,RANDOM URINE < 10 MEQ/L
[2018-02-07] MEDS: NS 1,000 ML IV ×3 (01:32→08:23)
[2018-02-07 05:21] LABS: HEMATOCRIT 27.7 % (42.0-52.0); HEMOGLOBIN 9.2 g/dl (13.5-17.5); MEAN CORPUSCULAR HEMOGLOBIN 31.7 pg (27.0-33.0); MEAN CORPUSCULAR HGB CONC 33.2 g/dl (32.0-36.5); MEAN CORPUSCULAR VOLUME 95.5 fl (80.0-96.0); PLATELET COUNT, AUTOMATED 216 10^3/uL (150-450); RED CELL DISTRIBUTION WIDTH 13.9 % (11.5-14.5)
[2018-02-07] MEDS: ACETAMINOPHEN 500 MG TAB PO ×3 (05:46→21:06)
[2018-02-07 05:48] LABS: ALBUMIN 2.1 GM/DL (3.2-5.2); ANION GAP 8 MEQ/L (8-16); BLOOD UREA NITROGEN 102 MG/DL (7-18); CARBON DIOXIDE LEVEL 26 MEQ/L (21-32); CHLORIDE LEVEL 105 MEQ/L (98-107); CREATININE FOR GFR 6.19 MG/DL (0.70-1.30); GLOMERULAR FILTRATION RATE 9.5 (>42); GLUCOSE, FASTING 96 MG/DL (70-100); PHOSPHORUS LEVEL 6.8 MG/DL (2.5-4.9); POTASSIUM SERUM 4.5 MEQ/L (3.5-5.1); SODIUM LEVEL 139 MEQ/L (136-145)
[2018-02-07 07:40] LABS: PROTHROMBIN TIME 65.8 SECONDS (12.1-14.4)
[2018-02-07] MEDS: MIRALAX *UNIT DOSE* 17GM PACKET PO (09:00)
[2018-02-07] MEDS: SOTALOL 40MG PER 1/2 TABLET PO ×2 (09:00→21:00)
[2018-02-07] MEDS: ISOSORBIDE MON. (IMDUR) 30 MG XR TAB PO (09:00)
[2018-02-07] MEDS: PHYTONADIONE IV (09:39)
[2018-02-07] MEDS: NS IV (09:39)
[2018-02-07] MEDS: BISACODYL 10 MG SUPP PR ×2 (09:39→21:06)
[2018-02-07] MEDS: SENOKOT S TAB PO ×2 (09:39→21:06)
[2018-02-07 13:14] LABS: TYPE AND SCREEN 1 1
[2018-02-07] MEDS ORDERED: LIDOCAINE 2% MDV 20 ML VIAL As Ordered (14:17)
[2018-02-07] MEDS ORDERED: HEPARIN 1,000 UNITS/ML 10ML VIAL (FOR RADIOLOGY& DIALYSIS ONLY) As Ordered (14:17)
[2018-02-07] MEDS: NS 0.45% 1,000 ML IV (17:02)
[2018-02-07 17:43] LABS: PROTHROMBIN TIME 18.3 SECONDS (12.1-14.4)
[2018-02-07 18:04] LABS: CHOLESTEROL LEVEL 86 MG/DL (<200); HDL CHOLESTEROL 20 MG/DL (>40); LDL CHOLESTEROL 36 MG/DL (<100); NON-HDL-C 66 MG/DL; TRIGLYCERIDES LEVEL 152 MG/DL (<150)
[2018-02-07 18:15] LABS: ESTIMATED AVERAGE GLUCOSE 91 MG/DL (60-110); HEMOGLOBIN A1c 4.8 %
[2018-02-07] MEDS: SIMVASTATIN 40 MG TAB PO (21:06)
[2018-02-07] MEDS ORDERED: PILL CRUSHER/CUTTER 1 EACH XX (21:15)
[2018-02-08 04:50] LABS: HEMATOCRIT 26.6 % (42.0-52.0); MEAN CORPUSCULAR HEMOGLOBIN 31.7 pg (27.0-33.0); MEAN CORPUSCULAR HGB CONC 33.8 g/dl (32.0-36.5); MEAN CORPUSCULAR VOLUME 93.7 fl (80.0-96.0); PLATELET COUNT, AUTOMATED 229 10^3/uL (150-450); RED BLOOD COUNT 2.84 10^6/uL (4.30-6.10); RED CELL DISTRIBUTION WIDTH 13.7 % (11.5-14.5)
[2018-02-08 05:09] LABS: INR 1.34; PROTHROMBIN TIME 16.8 SECONDS (12.1-14.4)
[2018-02-08] MEDS: ACETAMINOPHEN 500 MG TAB PO ×3 (05:12→21:13)
[2018-02-08 05:20] LABS: ALBUMIN 2.1 GM/DL (3.2-5.2); ALBUMIN/GLOBULIN RATIO 0.51 (1.00-1.93); ALKALINE PHOSPHATASE 50 U/L (45-117); ALT/SGPT 28 U/L (12-78); ANION GAP 12 MEQ/L (8-16); AST/SGOT 23 U/L (7-37); BILIRUBIN,TOTAL 0.5 MG/DL (0.2-1.0); BLOOD UREA NITROGEN 77 MG/DL (7-18); CALCIUM LEVEL 8.5 MG/DL (8.8-10.2); CARBON DIOXIDE LEVEL 26 MEQ/L (21-32); CHLORIDE LEVEL 105 MEQ/L (98-107); CREATININE FOR GFR 3.58 MG/DL (0.70-1.30); GLOMERULAR FILTRATION RATE 17.9 (>42); GLUCOSE, FASTING 95 MG/DL (70-100); POTASSIUM SERUM 3.5 MEQ/L (3.5-5.1); SODIUM LEVEL 143 MEQ/L (136-145); TOTAL PROTEIN 6.2 GM/DL (6.4-8.2)
[2018-02-08] MEDS: SENOKOT S TAB PO ×2 (08:05→21:13)
[2018-02-08] MEDS: BISACODYL 10 MG SUPP PR ×2 (08:06→21:13)
[2018-02-08] MEDS: MIRALAX *UNIT DOSE* 17GM PACKET PO (08:06)
[2018-02-08] MEDS: ISOSORBIDE MON. (IMDUR) 30 MG XR TAB PO (09:00)
[2018-02-08] MEDS: SOTALOL 40MG PER 1/2 TABLET PO ×2 (09:00→20:59)
[2018-02-08] MEDS ORDERED: HEPARIN SOD (PORCINE) 5000 UNITS/ML VIAL IV (09:00)
[2018-02-08 09:37] LABS: PARTIAL THROMBOPLASTIN TIME 36.3 SECONDS (25.4-37.6)
[2018-02-08] MEDS: PANTOPRAZOLE 40MG INJ (PROTONIX) (C9113) IV (11:02)
[2018-02-08] MEDS: KCL 40MEQ IN D5/0.45NS 1000ML 1,000 ML IV ×2 (11:03→18:54)
[2018-02-08] MEDS: HEPARIN DRIP 25,000 UNITS in APPROPRIATE DILUENT 1 EA IV (11:17)
[2018-02-08 17:54] LABS: PARTIAL THROMBOPLASTIN TIME 73.8 SECONDS (25.4-37.6)
[2018-02-08] MEDS: SIMVASTATIN 40 MG TAB PO (21:13)
[2018-02-08 23:14] LABS: PARTIAL THROMBOPLASTIN TIME 78.6 SECONDS (25.4-37.6)
[2018-02-09] MEDS: KCL 40MEQ IN D5/0.45NS 1000ML 1,000 ML IV ×3 (03:19→19:01)
[2018-02-09 04:41] LABS: HEMATOCRIT 25.3 % (42.0-52.0); HEMOGLOBIN 8.4 g/dl (13.5-17.5); MEAN CORPUSCULAR HEMOGLOBIN 31.3 pg (27.0-33.0); MEAN CORPUSCULAR HGB CONC 33.2 g/dl (32.0-36.5); MEAN CORPUSCULAR VOLUME 94.4 fl (80.0-96.0); PLATELET COUNT, AUTOMATED 219 10^3/uL (150-450); RED BLOOD COUNT 2.68 10^6/uL (4.30-6.10); RED CELL DISTRIBUTION WIDTH 13.4 % (11.5-14.5); WHITE BLOOD COUNT 4.6 10^3/uL (4.0-10.0)
[2018-02-09 04:57] LABS: INR 1.54; PROTHROMBIN TIME 18.7 SECONDS (12.1-14.4)
[2018-02-09 05:11] LABS: ALBUMIN/GLOBULIN RATIO 0.51 (1.00-1.93); ALKALINE PHOSPHATASE 48 U/L (45-117); ALT/SGPT 20 U/L (12-78); ANION GAP 5 MEQ/L (8-16); AST/SGOT 18 U/L (7-37); BILIRUBIN,TOTAL 0.4 MG/DL (0.2-1.0); BLOOD UREA NITROGEN 75 MG/DL (7-18); CALCIUM LEVEL 8.4 MG/DL (8.8-10.2); CARBON DIOXIDE LEVEL 30 MEQ/L (21-32); CHLORIDE LEVEL 108 MEQ/L (98-107); CREATININE FOR GFR 2.06 MG/DL (0.70-1.30); GLUCOSE, FASTING 153 MG/DL (70-100); POTASSIUM SERUM 3.6 MEQ/L (3.5-5.1); SODIUM LEVEL 143 MEQ/L (136-145); TOTAL PROTEIN 5.9 GM/DL (6.4-8.2)
[2018-02-09] MEDS: ACETAMINOPHEN 500 MG TAB PO ×3 (05:32→21:16)
[2018-02-09 08:18] LABS: HEPATITIS B CORE ANTIBODY IGG Negative (Negative)
[2018-02-09] MEDS: ISOSORBIDE MON. (IMDUR) 30 MG XR TAB PO (08:32)
[2018-02-09] MEDS: SOTALOL 40MG PER 1/2 TABLET PO (08:32)
[2018-02-09] MEDS: MIRALAX *UNIT DOSE* 17GM PACKET PO (09:49)
[2018-02-09] MEDS: SENOKOT S TAB PO ×2 (09:49→21:15)
[2018-02-09] MEDS: PANTOPRAZOLE 40MG INJ (PROTONIX) (C9113) IV (09:49)
[2018-02-09] MEDS: BISACODYL 10 MG SUPP PR ×2 (09:50→21:16)
[2018-02-09] MEDS: HEPARIN DRIP 25,000 UNITS in APPROPRIATE DILUENT 1 EA IV (11:13)
[2018-02-09] MEDS: SIMVASTATIN 40 MG TAB PO (21:15)
[2018-02-10] MEDS: KCL 40MEQ IN D5/0.45NS 1000ML 1,000 ML IV (02:25)
[2018-02-10] MEDS: ACETAMINOPHEN 500 MG TAB PO ×3 (06:11→21:48)
[2018-02-10 06:36] LABS: HEMATOCRIT 25.8 % (42.0-52.0); HEMOGLOBIN 8.4 g/dl (13.5-17.5); MEAN CORPUSCULAR HEMOGLOBIN 31.7 pg (27.0-33.0); MEAN CORPUSCULAR HGB CONC 32.6 g/dl (32.0-36.5); MEAN CORPUSCULAR VOLUME 97.4 fl (80.0-96.0); PLATELET COUNT, AUTOMATED 231 10^3/uL (150-450); RED BLOOD COUNT 2.65 10^6/uL (4.30-6.10); WHITE BLOOD COUNT 5.8 10^3/uL (4.0-10.0)
[2018-02-10 07:01] LABS: INR 2.12; PROTHROMBIN TIME 24.2 SECONDS (12.1-14.4)
[2018-02-10 07:03] LABS: PARTIAL THROMBOPLASTIN TIME 89.2 SECONDS (25.4-37.6)
[2018-02-10 07:06] LABS: ALBUMIN 1.9 GM/DL (3.2-5.2); ALKALINE PHOSPHATASE 56 U/L (45-117); ALT/SGPT 20 U/L (12-78); ANION GAP 5 MEQ/L (8-16); AST/SGOT 21 U/L (7-37); BILIRUBIN,TOTAL 0.4 MG/DL (0.2-1.0); BLOOD UREA NITROGEN 55 MG/DL (7-18); CALCIUM LEVEL 8.4 MG/DL (8.8-10.2); CARBON DIOXIDE LEVEL 29 MEQ/L (21-32); CHLORIDE LEVEL 111 MEQ/L (98-107); GLOMERULAR FILTRATION RATE 57.8 (>42); GLUCOSE, FASTING 103 MG/DL (70-100); POTASSIUM SERUM 4.3 MEQ/L (3.5-5.1); SODIUM LEVEL 145 MEQ/L (136-145); TOTAL PROTEIN 5.7 GM/DL (6.4-8.2)
[2018-02-10] MEDS: PANTOPRAZOLE 40MG INJ (PROTONIX) (C9113) IV (08:42)
[2018-02-10] MEDS: MIRALAX *UNIT DOSE* 17GM PACKET PO (08:46)
[2018-02-10] MEDS: ISOSORBIDE MON. (IMDUR) 30 MG XR TAB PO (08:46)
[2018-02-10] MEDS: SENOKOT S TAB PO ×2 (08:47→21:48)
[2018-02-10] MEDS: BISACODYL 10 MG SUPP PR ×2 (08:48→21:48)
[2018-02-10 10:05] LABS: HEPATITIS B SURFACE ANTIBODY NEGATIVE (POSITIVE)
[2018-02-10 10:16] LABS: HEPATITIS B SURFACE ANTIGEN NEGATIVE (NEGATIVE)
[2018-02-10 10:44] LABS: HEPATITIS B CORE ANTIBODY IGM NEGATIVE (NEGATIVE); HEPATITIS C VIRUS ABY INDEX < 0.0 INDEX (<0.8)
[2018-02-10] MEDS: HEPARIN DRIP 25,000 UNITS in APPROPRIATE DILUENT 1 EA IV (11:58)
[2018-02-10] MEDS: WARFARIN SOD 5 MG TAB PO (16:36)
[2018-02-10] MEDS: SIMVASTATIN 40 MG TAB PO (21:48)
[2018-02-11 05:20] LABS: HEMATOCRIT 24.9 % (42.0-52.0); HEMOGLOBIN 8.1 g/dl (13.5-17.5); MEAN CORPUSCULAR HEMOGLOBIN 31.8 pg (27.0-33.0); MEAN CORPUSCULAR HGB CONC 32.5 g/dl (32.0-36.5); MEAN CORPUSCULAR VOLUME 97.6 fl (80.0-96.0); PLATELET COUNT, AUTOMATED 251 10^3/uL (150-450); RED BLOOD COUNT 2.55 10^6/uL (4.30-6.10); RED CELL DISTRIBUTION WIDTH 14.2 % (11.5-14.5); WHITE BLOOD COUNT 8.1 10^3/uL (4.0-10.0)
[2018-02-11 05:32] LABS: INR 2.64; PROTHROMBIN TIME 28.7 SECONDS (12.1-14.4)
[2018-02-11 05:36] LABS: PARTIAL THROMBOPLASTIN TIME 100.4 SECONDS (25.4-37.6)
[2018-02-11] MEDS: ONDANSETRON 4MG/2ML VIAL (J2405) IV (05:44)
[2018-02-11 05:48] LABS: ALBUMIN 1.9 GM/DL (3.2-5.2); ALBUMIN/GLOBULIN RATIO 0.51 (1.00-1.93); ALKALINE PHOSPHATASE 88 U/L (45-117); ALT/SGPT 24 U/L (12-78); ANION GAP 5 MEQ/L (8-16); AST/SGOT 30 U/L (7-37); BILIRUBIN,TOTAL 0.5 MG/DL (0.2-1.0); BLOOD UREA NITROGEN 39 MG/DL (7-18); CALCIUM LEVEL 8.2 MG/DL (8.8-10.2); CARBON DIOXIDE LEVEL 26 MEQ/L (21-32); CHLORIDE LEVEL 112 MEQ/L (98-107); CREATININE FOR GFR 1.14 MG/DL (0.70-1.30); GLOMERULAR FILTRATION RATE > 60.0 (>42); GLUCOSE, FASTING 121 MG/DL (70-100); POTASSIUM SERUM 4.1 MEQ/L (3.5-5.1); SODIUM LEVEL 143 MEQ/L (136-145); TOTAL PROTEIN 5.6 GM/DL (6.4-8.2)
[2018-02-11] MEDS: ACETAMINOPHEN 500 MG TAB PO (06:00)
[2018-02-11] MEDS: MIRALAX *UNIT DOSE* 17GM PACKET PO (08:48)
[2018-02-11] MEDS: SENOKOT S TAB PO (08:49)
[2018-02-11] MEDS: BISACODYL 10 MG SUPP PR (08:49)
[2018-02-11] MEDS: ISOSORBIDE MON. (IMDUR) 30 MG XR TAB PO (08:59)
[2018-02-11] MEDS ORDERED: SOTALOL 40MG PER 1/2 TABLET PO ×2 (09:00→12:01)
[2018-02-11] MEDS ORDERED: ACETAMINOPHEN 500 MG TAB PO (09:00)
[2018-02-11] MEDS: PANTOPRAZOLE 40MG INJ (PROTONIX) (C9113) IV (09:00)
[2018-02-11] MEDS ORDERED: SOTALOL HCL 80 MG TAB PO (09:00)
[2018-02-11] MEDS ORDERED: TORSEMIDE 20 MG TAB PO (12:00)
== END 2018-02-11 13:45 | disposition home health service (06) | DRG 470 ==
LOC: M OR 06:38 → M ICU 02-06 10:04 → M MS5PR 12:30
PROC: 0SRC0J9 Replacement of Right Knee Joint with Synthetic Substitute, Cemented, Open Approach (ICD-10-PCS; principal; 2018-02-03 09:25)
PROC: 30233K1 Transfusion of Nonautologous Frozen Plasma into Peripheral Vein, Percutaneous Approach (ICD-10-PCS; 2018-02-03 09:25)
PROC: 5A1D70Z Performance of Urinary Filtration, Intermittent, Less than 6 Hours Per Day (ICD-10-PCS; 2018-02-03 09:25)
DX: M17.11 Unilateral primary osteoarthritis, right knee (principal); I50.32 Chronic diastolic (congestive) heart failure; Z68.42 Body mass index [BMI] 45.0-49.9, adult; K91.89 Other postprocedural complications and disorders of digestive system; N17.9 Acute kidney failure, unspecified; I13.0 Hypertensive heart and chronic kidney disease with heart failure and stage 1 through stage 4 chronic kidney disease, or unspecified chronic kidney disease; K56.7 Ileus, unspecified; Z95.2 Presence of prosthetic heart valve; N18.3 Chronic kidney disease, stage 3 (moderate); D47.2 Monoclonal gammopathy; E66.01 Morbid (severe) obesity due to excess calories; Z88.0 Allergy status to penicillin; Z79.82 Long term (current) use of aspirin; Z79.899 Other long term (current) drug therapy; I48.91 Unspecified atrial fibrillation; Z87.891 Personal history of nicotine dependence; I25.10 Atherosclerotic heart disease of native coronary artery without angina pectoris; G47.33 Obstructive sleep apnea (adult) (pediatric); K59.00 Constipation, unspecified; R33.9 Retention of urine, unspecified; I95.9 Hypotension, unspecified

== ENCOUNTER → 2018-02-14 | Outpatient (REF) | payer MEDICARE ==
[2018-02-14 16:56] LABS: INR 2.24; PROTHROMBIN TIME 25.2 SECONDS (12.1-14.4)
== END ==
LOC: M SFHCCLAY 11:28
DX: I48.0 Paroxysmal atrial fibrillation (principal); Z95.2 Presence of prosthetic heart valve
CPT/HCPCS: 85610

== ENCOUNTER → 2018-04-03 | Outpatient (REF) | payer MEDICARE ==
[2018-04-03 17:12] LABS: ANION GAP 5 MEQ/L (8-16); BLOOD UREA NITROGEN 23 MG/DL (7-18); CALCIUM LEVEL 9.3 MG/DL (8.8-10.2); CARBON DIOXIDE LEVEL 32 MEQ/L (21-32); CHLORIDE LEVEL 105 MEQ/L (98-107); CREATININE FOR GFR 1.44 MG/DL (0.70-1.30); GLOMERULAR FILTRATION RATE 51.3 (>42); GLUCOSE, FASTING 115 MG/DL (70-100); POTASSIUM SERUM 4.4 MEQ/L (3.5-5.1); SODIUM LEVEL 142 MEQ/L (136-145)
[2018-04-03 18:12] LABS: HEMOGLOBIN 10.4 g/dl (13.5-17.5); MEAN CORPUSCULAR HGB CONC 31.5 g/dl (32.0-36.5); MEAN CORPUSCULAR VOLUME 95.1 fl (80.0-96.0); PLATELET COUNT, AUTOMATED 275 10^3/uL (150-450); RED BLOOD COUNT 3.47 10^6/uL (4.30-6.10); RED CELL DISTRIBUTION WIDTH 13.3 % (11.5-14.5); WHITE BLOOD COUNT 5.3 10^3/uL (4.0-10.0)
== END ==
LOC: M LABDRWCV 16:19
DX: I48.91 Unspecified atrial fibrillation (principal)
CPT/HCPCS: 80048

== ENCOUNTER → 2018-05-01 | Outpatient (REF) | payer MEDICARE ==
[~2018-05-01] MED LIST changes: +ASPI1TAB PO; +ASPI81TA85 PO; +ATEN25TA PO; +COUM1TAB19 PO; +ISOS30TA4 PO; -LIDOCAINE 1% MDV 20ML VIAL SQ; +LISI-538 PO; +LISI5TAB PO; +SIMV80TA PO; +SIMV80TA13 PO; +SOTA80TA53 PO; +TORS20TA2 PO; +TRAM50TA2 PO; +TUMS500C PO; +TYLE500T78 PO; +VITA10002 PO; +VITA100067 PO; +WARF-58 PO; +WARF-60 PO; +WARF6TAB14 PO
[2018-05-01 11:40] LABS: BASO % 0.5 % (0.0-1.0); EOS # 0.2 10^3/uL (0.0-0.50); EOS % 3.5 % (0.0-3.0); HEMATOCRIT 31.5 % (42.0-52.0); HEMOGLOBIN 9.7 g/dl (13.5-17.5); LYMPH # 0.6 10^3/uL (1.5-4.5); LYMPH % 13.4 % (24.0-44.0); MEAN CORPUSCULAR HGB CONC 30.8 g/dl (32.0-36.5); MEAN CORPUSCULAR VOLUME 94.3 fl (80.0-96.0); MONO # 0.3 10^3/uL (0.0-0.8); MONO % 6.9 % (0.0-5.0); NEUTROPHILS # 3.2 10^3/uL (1.8-7.7); NEUTROPHILS % 74.8 % (36.0-66.0); PLATELET COUNT, AUTOMATED 239 10^3/uL (150-450); RED BLOOD COUNT 3.34 10^6/uL (4.30-6.10); WHITE BLOOD COUNT 4.3 10^3/uL (4.0-10.0)
[2018-05-01 11:41] LABS: HEMATOCRIT 31.5 % (42.0-52.0)
[2018-05-01 12:07] LABS: ALBUMIN 3.4 GM/DL (3.2-5.2); ALT/SGPT 20 U/L (12-78); BILIRUBIN,TOTAL 0.5 MG/DL (0.2-1.0); BLOOD UREA NITROGEN 29 MG/DL (7-18); CALCIUM LEVEL 9.4 MG/DL (8.8-10.2); CARBON DIOXIDE LEVEL 29 MEQ/L (21-32); CHLORIDE LEVEL 109 MEQ/L (98-107); CREATININE FOR GFR 1.41 MG/DL (0.70-1.30); GLOMERULAR FILTRATION RATE 52.6 (>42); GLUCOSE, FASTING 93 MG/DL (70-100); POTASSIUM SERUM 5.1 MEQ/L (3.5-5.1); SODIUM LEVEL 143 MEQ/L (136-145); TOTAL PROTEIN 7.5 GM/DL (6.4-8.2)
[2018-05-01 12:11] LABS: PTH INTACT 87.2 PG/ML (18.5-88.0); TOTAL 25(OH) VITAMIN D 46.6 NG/ML (30.0-100.0); VITAMIN B12 LEVEL 517 PG/ML (247-911)
[2018-05-01 12:33] LABS: HEMOGLOBIN A1c 4.7 %
[2018-05-06 12:41] LABS: ALBUMIN 3.73 GM/DL (3.29-5.55); ALBUMIN % 49.7 % (55.8-66.1); ALPHA-1-GLOBULIN % 6.9 % (2.9-4.9); ALPHA-1-GLOBULINS 0.52 GM/DL (0.17-0.41); ALPHA-2-GLOBULINS 0.72 GM/DL (0.42-0.99); ALPHA-2-GLOBULINS % 9.6 % (7.1-11.8); BETA-1-GLOBULINS 0.42 GM/DL (0.28-0.60); BETA-1-GLOBULINS % 5.6 % (4.7-7.2); BETA-2-GLOBULINS % 5.3 % (3.2-6.5); GAMMA GLOBULIN % 22.9 % (11.1-18.8); GAMMA GLOBULINS 1.72 GM/DL (0.65-1.58)
== END ==
LOC: M SFHCPLAZ 09:23
PROVIDERS: ATTEND Family Medicine
DX: D47.2 Monoclonal gammopathy (principal); R73.01 Impaired fasting glucose; N18.3 Chronic kidney disease, stage 3 (moderate); E53.8 Deficiency of other specified B group vitamins

== ENCOUNTER → 2018-05-30 | Outpatient (REF) | payer MEDICARE ==
[2018-05-30 16:45] LABS: BASO % 0.6 % (0.0-1.0); EOS # 0.2 10^3/uL (0.0-0.50); EOS % 3.9 % (0.0-3.0); HEMATOCRIT 31.6 % (42.0-52.0); HEMOGLOBIN 9.6 g/dl (13.5-17.5); LYMPH # 0.6 10^3/uL (1.5-4.5); LYMPH % 12.5 % (24.0-44.0); MEAN CORPUSCULAR HEMOGLOBIN 29.3 pg (27.0-33.0); MEAN CORPUSCULAR HGB CONC 30.4 g/dl (32.0-36.5); MEAN CORPUSCULAR VOLUME 96.3 fl (80.0-96.0); MONO # 0.4 10^3/uL (0.0-0.8); MONO % 7.8 % (0.0-5.0); NEUTROPHILS # 3.9 10^3/uL (1.8-7.7); PLATELET COUNT, AUTOMATED 402 10^3/uL (150-450); RED BLOOD COUNT 3.28 10^6/uL (4.30-6.10); WHITE BLOOD COUNT 5.1 10^3/uL (4.0-10.0)
[2018-05-30 17:03] LABS: CALCIUM LEVEL 9.6 MG/DL (8.8-10.2); CREATININE FOR GFR 1.39 MG/DL (0.70-1.30); GLOMERULAR FILTRATION RATE 53.5 (>42); POTASSIUM SERUM 4.3 MEQ/L (3.5-5.1)
== END ==
LOC: M LABDRAWC 16:19 → M LAB REF 16:19
PROVIDERS: ATTEND Internal Medicine Cardiovascular Disease
DX: I48.0 Paroxysmal atrial fibrillation (principal); I48.92 Unspecified atrial flutter; G47.33 Obstructive sleep apnea (adult) (pediatric); I25.10 Atherosclerotic heart disease of native coronary artery without angina pectoris

== ENCOUNTER → 2018-07-01 | Outpatient (REF) | payer MEDICARE ==
[2018-07-01 11:24] LABS: BASO % 0.5 % (0.0-1.0); EOS # 0.1 10^3/uL (0.0-0.50); HEMATOCRIT 36.4 % (42.0-52.0); HEMOGLOBIN 11.3 g/dl (13.5-17.5); LYMPH # 0.6 10^3/uL (1.5-4.5); MEAN CORPUSCULAR HEMOGLOBIN 29.6 pg (27.0-33.0); MEAN CORPUSCULAR VOLUME 95.3 fl (80.0-96.0); MONO # 0.3 10^3/uL (0.0-0.8); MONO % 7.3 % (0.0-5.0); NEUTROPHILS % 73.9 % (36.0-66.0); PLATELET COUNT, AUTOMATED 229 10^3/uL (150-450); RED BLOOD COUNT 3.82 10^6/uL (4.30-6.10)
[2018-07-01 12:22] LABS: IMMUNOGLOBULIN M 66.9 MG/DL (40-230); PERCENT SATURATION 25.2 % (19.7-50.0)
[2018-07-03 00:07] LABS: ERYTHROPOIETIN 10.9 mIU/mL (2.6-18.5); FREE KAPPA LIGHT CHAINS SERUM 250.6 mg/L (3.3-19.4); FREE LAMBDA LIGHT CHAINS SERUM 21.1 mg/L (5.7-26.3); KAPPA/LAMBDA RATIO SERUM 11.88 (0.26-1.65)
[2018-07-03 08:52] LABS: FREE KAPPA LIGHT CHAINS URINE 3.89 mg/L (1.35-24.19); FREE LAMBDA LIGHT CHAINS URINE 0.17 mg/L (0.24-6.66); KAPPA/LAMBDA RATIO URINE 22.88 (2.04-10.37)
== END ==
LOC: M SFHCPLAZ 08:34
PROVIDERS: ATTEND Family Medicine
DX: G62.9 Polyneuropathy, unspecified (principal)

== ENCOUNTER → 2018-07-31 | Outpatient (REF) | payer MEDICARE ==
[~2018-07-31] MED LIST changes: -ASPI1TAB PO; +ASPI81TA26 PO
[2018-07-31 18:09] LABS: BLOOD UREA NITROGEN 23 MG/DL (7-18); CALCIUM LEVEL 9.4 MG/DL (8.8-10.2); CARBON DIOXIDE LEVEL 29 MEQ/L (21-32); CHLORIDE LEVEL 111 MEQ/L (98-107); CREATININE FOR GFR 1.16 MG/DL (0.70-1.30); GLOMERULAR FILTRATION RATE > 60.0 (>42); GLUCOSE, FASTING 91 MG/DL (70-100); POTASSIUM SERUM 4.2 MEQ/L (3.5-5.1); SODIUM LEVEL 144 MEQ/L (136-145)
[2018-07-31 18:21] LABS: HEMATOCRIT 34.7 % (42.0-52.0); HEMOGLOBIN 11.1 g/dl (13.5-17.5); MEAN CORPUSCULAR HEMOGLOBIN 30.8 pg (27.0-33.0); MEAN CORPUSCULAR VOLUME 96.4 fl (80.0-96.0); PLATELET COUNT, AUTOMATED 207 10^3/uL (150-450)
== END ==
LOC: M LABDRWCV 17:04
PROVIDERS: ATTEND Internal Medicine Cardiovascular Disease
DX: I48.92 Unspecified atrial flutter (principal)

== ENCOUNTER → 2018-08-18 | Outpatient (REF) | payer MEDICARE ==
[2018-08-18 12:07] LABS: INR 2.1; PROTHROMBIN TIME 23.9 SECONDS (12.1-14.4)
== END ==
LOC: M LABDRAWC 11:10
PROVIDERS: ATTEND Internal Medicine Cardiovascular Disease
DX: I48.91 Unspecified atrial fibrillation (principal)

== ENCOUNTER → 2018-09-02 | Outpatient (REF) | payer MEDICARE ==
[2018-09-02 19:03] LABS: HEMATOCRIT 38.4 % (42.0-52.0); HEMOGLOBIN 12.5 g/dl (13.5-17.5); MEAN CORPUSCULAR HEMOGLOBIN 31.2 pg (27.0-33.0); MEAN CORPUSCULAR HGB CONC 32.6 g/dl (32.0-36.5); MEAN CORPUSCULAR VOLUME 95.8 fl (80.0-96.0); PLATELET COUNT, AUTOMATED 261 10^3/uL (150-450); RED BLOOD COUNT 4.01 10^6/uL (4.30-6.10); WHITE BLOOD COUNT 6.7 10^3/uL (4.0-10.0)
[2018-09-02 19:05] LABS: CALCIUM LEVEL 9.3 MG/DL (8.8-10.2); CREATININE FOR GFR 1.28 MG/DL (0.70-1.30); GLOMERULAR FILTRATION RATE 58.8 (>42); POTASSIUM SERUM 4.6 MEQ/L (3.5-5.1)
== END ==
LOC: M LABDRAWC 17:05
PROVIDERS: ATTEND Internal Medicine Cardiovascular Disease
DX: I47.2 Ventricular tachycardia (principal); I25.10 Atherosclerotic heart disease of native coronary artery without angina pectoris

== ENCOUNTER → 2018-09-16 | Outpatient (REF) | payer MEDICARE ==
[2018-09-17 12:07] LABS: ALBUMIN 3.8 GM/DL (3.2-5.2); BILIRUBIN,DIRECT 0.1 MG/DL (0.0-0.2); BILIRUBIN,TOTAL 0.3 MG/DL (0.2-1.0); THYROID STIMULATING HORMONE 1.76 uIU/ML (0.358-3.740); TOTAL PROTEIN 8.1 GM/DL (6.4-8.2)
== END ==
LOC: M LABDRAWC 11:16
PROVIDERS: ATTEND Internal Medicine Cardiovascular Disease
DX: I48.0 Paroxysmal atrial fibrillation (principal)

== ENCOUNTER → 2018-09-30 | Outpatient (REF) | payer MEDICARE ==
[2018-09-30 12:15] LABS: BASO % 0.5 % (0.0-1.0); EOS # 0.2 10^3/uL (0.0-0.50); EOS % 4.4 % (0.0-3.0); HEMATOCRIT 36.8 % (42.0-52.0); HEMOGLOBIN 12.1 g/dl (13.5-17.5); LYMPH # 0.8 10^3/uL (1.5-4.5); LYMPH % 18.2 % (24.0-44.0); MEAN CORPUSCULAR HEMOGLOBIN 31.4 pg (27.0-33.0); MEAN CORPUSCULAR HGB CONC 32.9 g/dl (32.0-36.5); MEAN CORPUSCULAR VOLUME 95.6 fl (80.0-96.0); MONO # 0.3 10^3/uL (0.0-0.8); NEUTROPHILS # 2.9 10^3/uL (1.8-7.7); NEUTROPHILS % 69.9 % (36.0-66.0); PLATELET COUNT, AUTOMATED 214 10^3/uL (150-450); RED BLOOD COUNT 3.85 10^6/uL (4.30-6.10); WHITE BLOOD COUNT 4.1 10^3/uL (4.0-10.0)
[2018-09-30 14:21] LABS: ALBUMIN 4.1 GM/DL (3.2-5.2); ALT/SGPT 28 U/L (12-78); BILIRUBIN,TOTAL 0.5 MG/DL (0.2-1.0); BLOOD UREA NITROGEN 47 MG/DL (7-18); CALCIUM LEVEL 9.9 MG/DL (8.8-10.2); CARBON DIOXIDE LEVEL 30 MEQ/L (21-32); CHLORIDE LEVEL 106 MEQ/L (98-107); CHOLESTEROL LEVEL 121 MG/DL (<200); CHOLESTEROL RISK RATIO 2.326 (<5); CREATININE FOR GFR 1.56 MG/DL (0.70-1.30); FREE T4 1.12 NG/DL (0.76-1.46); GLOMERULAR FILTRATION RATE 46.8 (>42); GLUCOSE, FASTING 96 MG/DL (70-100); HDL CHOLESTEROL 52 MG/DL (>40); LDL CHOLESTEROL 53 MG/DL (<100); MAGNESIUM LEVEL 2.7 MG/DL (1.8-2.4); NON-HDL-C 69 MG/DL; POTASSIUM SERUM 4.3 MEQ/L (3.5-5.1); SODIUM LEVEL 141 MEQ/L (136-145); TOTAL 25(OH) VITAMIN D 43.3 NG/ML (30.0-100.0); TOTAL PROTEIN 7.8 GM/DL (6.4-8.2); TRIGLYCERIDES LEVEL 79 MG/DL (<150); VITAMIN B12 LEVEL 861 PG/ML (247-911)
[2018-10-02 10:14] LABS: ALBUMIN 4.28 GM/DL (3.29-5.55); ALBUMIN % 54.9 % (55.8-66.1); ALPHA-1-GLOBULIN % 4.8 % (2.9-4.9); ALPHA-1-GLOBULINS 0.37 GM/DL (0.17-0.41); ALPHA-2-GLOBULINS 0.58 GM/DL (0.42-0.99); ALPHA-2-GLOBULINS % 7.4 % (7.1-11.8); BETA-1-GLOBULINS 0.45 GM/DL (0.28-0.60); BETA-1-GLOBULINS % 5.8 % (4.7-7.2); BETA-2-GLOBULINS 0.36 GM/DL (0.19-0.55); BETA-2-GLOBULINS % 4.6 % (3.2-6.5); GAMMA GLOBULIN % 22.5 % (11.1-18.8)
[2018-10-02 10:15] LABS: GAMMA GLOBULINS 1.76 GM/DL (0.65-1.58)
== END ==
LOC: M SFHCCLAY 08:20
PROVIDERS: ATTEND Family Medicine
DX: I10 Essential (primary) hypertension (principal); E55.9 Vitamin D deficiency, unspecified; E78.2 Mixed hyperlipidemia; Z12.5 Encounter for screening for malignant neoplasm of prostate; D47.2 Monoclonal gammopathy; E53.8 Deficiency of other specified B group vitamins
CPT/HCPCS: 80053; 80061; 82306; 82607; 83735; 84165; 84439; 84443; 85025; G0103

== ENCOUNTER 2018-11-03 23:53 | Emergency (ER) | payer MEDICARE ==
[~2018-11-03 23:53] MED LIST changes: +CYAN100049 PO; -VITA10002 PO
[2018-11-04] MEDS ORDERED: SOTALOL 40MG PER 1/2 TABLET PO ONE (00:30)
[2018-11-04 00:50] LABS: BASO % 0.2 % (0.0-1.0); EOS # 0.1 10^3/uL (0.0-0.50); EOS % 1.2 % (0.0-3.0); HEMATOCRIT 33.6 % (42.0-52.0); HEMOGLOBIN 11.3 g/dl (13.5-17.5); LYMPH # 0.6 10^3/uL (1.5-4.5); MEAN CORPUSCULAR HEMOGLOBIN 31.7 pg (27.0-33.0); MEAN CORPUSCULAR HGB CONC 33.6 g/dl (32.0-36.5); MEAN CORPUSCULAR VOLUME 94.4 fl (80.0-96.0); MONO # 0.4 10^3/uL (0.0-0.8); MONO % 4.8 % (0.0-5.0); NEUTROPHILS # 7.2 10^3/uL (1.8-7.7); NEUTROPHILS % 86.2 % (36.0-66.0); PLATELET COUNT, AUTOMATED 202 10^3/uL (150-450); RED BLOOD COUNT 3.56 10^6/uL (4.30-6.10); WHITE BLOOD COUNT 8.3 10^3/uL (4.0-10.0)
[2018-11-04 00:54] LABS: CALCIUM LEVEL 9.2 MG/DL (8.8-10.2); CK-MB VALUE MASS 1.2 NG/ML (<3.6); CREATININE FOR GFR 1.77 MG/DL (0.70-1.30); GLOMERULAR FILTRATION RATE 40.3 (>42); MAGNESIUM LEVEL 2.3 MG/DL (1.8-2.4); MB/CK RELATIVE INDEX 1.3 (< OR =4); POTASSIUM SERUM 3.7 MEQ/L (3.5-5.1); TROPONIN I 0.02 NG/ML (< 0.10)
[2018-11-04 01:19] VITALS: BP 201/97
[2018-11-04 02:06] LABS: INR 3.04; PROTHROMBIN TIME 31.4 SECONDS (11.8-14.0)
[2018-11-04 02:07] LABS: PARTIAL THROMBOPLASTIN TIME 33.9 SECONDS (25.0-38.4)
[2018-11-04] MEDS ORDERED: VITA500T40 PO (03:30)
[2018-11-04] MEDS ORDERED: AMIO200T PO ×2 (03:30→03:48)
[2018-11-04] MEDS ORDERED: ZOCO80TA PO (03:30)
[2018-11-04] MEDS ORDERED: WARF-60 PO ×2 (03:30)
[2018-11-04] MEDS ORDERED: ASPI-161 PO (03:30)
[2018-11-04] MEDS ORDERED: ACET-897 PO (03:30)
[2018-11-04] MEDS ORDERED: VITA500079 PO (03:30)
[2018-11-04] MEDS ORDERED: CALC500C16 PO (03:30)
[2018-11-04] MEDS ORDERED: AMIODARONE HCL 150 MG in APPROPRIATE DILUENT 1 EA IV ONE (03:45)
[2018-11-04] MEDS ORDERED: AMIO400T5 PO (03:48)
[2018-11-04 04:30] VITALS: BP 150/81
--- NOTE | 2018-11-05 19:09 | ECGEPIP ---
[facility] - ED Test Date: 2018-11-04 Pat Name: EMILIANO WHITEHEAD Department: Room: - Gender: Male Drapery Installer: : 1945 Requested By: FARIDA HINOJOSA Order Number: [id number] Reading MD: Arielle Carrillo Measurements Intervals [place] Rate: 94 P: 263 MT: 199 QRS: QRSD: 178 T: 74 QT: 457 QTc: 574 Interpretive Statements ELECTRONIC VENTRICULAR PACEMAKER ABNORMAL RHYTHM ECG Electronically Signed on 11-05-2018 19:09:01 EDT by Arielle Carrillo
== END 2018-11-04 05:10 | disposition home or self-care (01) ==
LOC: M ED 23:53
DX: I49.8 Other specified cardiac arrhythmias (principal); T82.198A Other mechanical complication of other cardiac electronic device, initial encounter; X58.XXXA Exposure to other specified factors, initial encounter; Y92.89 Other specified places as the place of occurrence of the external cause; I10 Essential (primary) hypertension; N28.9 Disorder of kidney and ureter, unspecified; E78.5 Hyperlipidemia, unspecified; I25.10 Atherosclerotic heart disease of native coronary artery without angina pectoris; D64.9 Anemia, unspecified; E66.9 Obesity, unspecified; Z79.899 Other long term (current) drug therapy; Z79.82 Long term (current) use of aspirin; Z79.01 Long term (current) use of anticoagulants; Z88.0 Allergy status to penicillin; Z87.891 Personal history of nicotine dependence

== ENCOUNTER → 2018-12-19 | Outpatient (REF) | payer MEDICARE ==
[~2018-12-19] MED LIST changes: +ACET-897 PO; +AMIO200T PO; +AMIO400T5 PO; +ASPI-161 PO; +CALC500C16 PO; +VITA500079 PO; +VITA500T40 PO; +ZOCO80TA PO
[2018-12-19 17:14] LABS: ALBUMIN 3.8 GM/DL (3.2-5.2); BILIRUBIN,DIRECT 0.2 MG/DL (0.0-0.2); BILIRUBIN,TOTAL 0.7 MG/DL (0.2-1.0); FREE T4 1.17 NG/DL (0.76-1.46); THYROID STIMULATING HORMONE 1.37 uIU/ML (0.358-3.740); TOTAL PROTEIN 7.3 GM/DL (6.4-8.2)
== END ==
LOC: M LABDRAWC 16:09
PROVIDERS: ATTEND Internal Medicine Cardiovascular Disease
DX: R00.2 Palpitations (principal); I47.2 Ventricular tachycardia

== ENCOUNTER → 2019-02-06 | Outpatient (REF) | payer MEDICARE ==
[2019-02-06 11:14] LABS: BASO % 0.5 % (0.0-1.0); EOS # 0.2 10^3/uL (0.0-0.5); EOS % 2.3 % (0.0-3.0); HEMATOCRIT 37.9 % (42.0-52.0); HEMOGLOBIN 12.4 g/dl (13.5-17.5); LYMPH # 0.8 10^3/uL (1.5-5.0); LYMPH % 12.7 % (24.0-44.0); MEAN CORPUSCULAR HEMOGLOBIN 32.7 pg (27.0-33.0); MEAN CORPUSCULAR HGB CONC 32.7 g/dl (32.0-36.5); MONO # 0.4 10^3/uL (0.0-0.8); MONO % 6.8 % (0.0-5.0); NEUTROPHILS % 77.4 % (36.0-66.0); PLATELET COUNT, AUTOMATED 222 10^3/uL (150-450); RED BLOOD COUNT 3.79 10^6/uL (4.30-6.10); WHITE BLOOD COUNT 6.5 10^3/uL (4.0-10.0)
[2019-02-06 11:24] LABS: INR 3.95; PROTHROMBIN TIME 38.7 SECONDS (11.8-14.0)
[2019-02-06 11:25] LABS: PARTIAL THROMBOPLASTIN TIME 37.2 SECONDS (25.0-38.4)
[2019-02-06 11:43] LABS: ALBUMIN 3.7 GM/DL (3.2-5.2); BILIRUBIN,TOTAL 0.4 MG/DL (0.2-1.0); CALCIUM LEVEL 9.9 MG/DL (8.8-10.2); CREATININE FOR GFR 2.08 MG/DL (0.70-1.30); GLOMERULAR FILTRATION RATE 33.5 (>42); POTASSIUM SERUM 4.7 MEQ/L (3.5-5.1); TOTAL PROTEIN 7.6 GM/DL (6.4-8.2); TROPONIN I 0.02 NG/ML (< 0.10)
== END ==
LOC: M SFHCPLAZ 10:12
PROVIDERS: ATTEND Family Medicine
DX: J18.9 Pneumonia, unspecified organism (principal)
CPT/HCPCS: 80053; 83605; 84484; 85025; 85610; 85730; G0463

== ENCOUNTER → 2019-02-10 | Outpatient (REF) | payer MEDICARE ==
[2019-02-10 13:44] LABS: INR 3.24; PROTHROMBIN TIME 33.1 SECONDS (11.8-14.0)
[2019-02-10 13:45] LABS: CALCIUM LEVEL 9.8 MG/DL (8.8-10.2); CREATININE FOR GFR 1.86 MG/DL (0.70-1.30); GLOMERULAR FILTRATION RATE 38.1 (>42); PHOSPHORUS LEVEL 2.7 MG/DL (2.5-4.9); POTASSIUM SERUM 3.9 MEQ/L (3.5-5.1)
== END ==
LOC: M SFHCPLAZ 10:58
PROVIDERS: ATTEND Nurse Practitioner Family
DX: N18.3 Chronic kidney disease, stage 3 (moderate) (principal); I48.0 Paroxysmal atrial fibrillation; I50.32 Chronic diastolic (congestive) heart failure; Z79.01 Long term (current) use of anticoagulants

== ENCOUNTER → 2019-02-18 | Outpatient (REF) | payer MEDICARE ==
[2019-02-18 17:02] LABS: HEMATOCRIT 40.4 % (42.0-52.0); HEMOGLOBIN 12.9 g/dl (13.5-17.5); MEAN CORPUSCULAR HEMOGLOBIN 32.9 pg (27.0-33.0); MEAN CORPUSCULAR HGB CONC 31.9 g/dl (32.0-36.5); MEAN CORPUSCULAR VOLUME 103.1 fl (80.0-96.0); PLATELET COUNT, AUTOMATED 247 10^3/uL (150-450); RED BLOOD COUNT 3.92 10^6/uL (4.30-6.10); WHITE BLOOD COUNT 5.8 10^3/uL (4.0-10.0)
[2019-02-18 17:19] LABS: CALCIUM LEVEL 9.7 MG/DL (8.8-10.2); CREATININE FOR GFR 1.84 MG/DL (0.70-1.30); GLOMERULAR FILTRATION RATE 38.6 (>42); POTASSIUM SERUM 4.1 MEQ/L (3.5-5.1)
== END ==
LOC: M LABDRAW1 16:22
PROVIDERS: ATTEND Internal Medicine Cardiovascular Disease
DX: I47.2 Ventricular tachycardia (principal)

== ENCOUNTER → 2019-03-25 | Outpatient (REF) | payer MEDICARE ==
[2019-03-25 19:57] LABS: CALCIUM LEVEL 9.5 MG/DL (8.8-10.2); CREATININE FOR GFR 1.56 MG/DL (0.70-1.30); GLOMERULAR FILTRATION RATE 46.7 (>42); POTASSIUM SERUM 3.9 MEQ/L (3.5-5.1)
== END ==
LOC: M LABDRAWC 19:17 → M LAB REF 19:17
PROVIDERS: ATTEND Internal Medicine Cardiovascular Disease
DX: I44.2 Atrioventricular block, complete (principal); I47.2 Ventricular tachycardia; Z79.899 Other long term (current) drug therapy
CPT/HCPCS: 80053; 81001; 82043; 83036; 83525; 83735; 83880; 85025; 85046; G0463

== ENCOUNTER → 2019-03-25 | Outpatient (REF) | payer MEDICARE ==
[2019-03-25 18:00] LABS: APPEARANCE, URINE CLEAR (CLEAR); BACTERIA, URINE AUTO NEGATIVE (NEGATIVE); BILIRUBIN, URINE AUTO NEGATIVE (NEGATIVE); BLOOD, URINE BLOOD 1+ (NEGATIVE); COLOR, URINE STRAW (YELLOW); GLUCOSE, URINE (UA) AUTO NEGATIVE (NEGATIVE); KETONE, URINE AUTO NEGATIVE (NEGATIVE); LEUKOCYTE ESTERASE, URINE AUTO NEGATIVE (NEGATIVE); MUCUS, URINE SMALL (NEGATIVE); NITRITE, URINE AUTO NEGATIVE (NEGATIVE); PROTEIN, URINE AUTO NEGATIVE (NEGATIVE); RBC, URINE AUTO 3 /HPF (0-3); SPECIFIC GRAVITY URINE AUTO 1.009 (1.002-1.035); SQUAMOUS EPITHELIAL CELL UR AU 0 /HPF (0-6); UROBILINOGEN, URINE AUTO 0.2 mg/dL (0.0-2.0); WBC, URINE AUTO 1 /HPF (0-3)
[2019-03-25 18:01] LABS: ALBUMIN 3.6 GM/DL (3.2-5.2); BILIRUBIN,TOTAL 0.5 MG/DL (0.2-1.0); CALCIUM LEVEL 9.5 MG/DL (8.8-10.2); CREATININE FOR GFR 1.58 MG/DL (0.70-1.30); MAGNESIUM LEVEL 3.1 MG/DL (1.8-2.4); POTASSIUM SERUM 3.9 MEQ/L (3.5-5.1); TOTAL PROTEIN 7.6 GM/DL (6.4-8.2)
[2019-03-25 18:04] LABS: BASO % 0.4 % (0.0-1.0); EOS # 0.1 10^3/uL (0.0-0.5); EOS % 2.1 % (0.0-3.0); HEMATOCRIT 37.6 % (42.0-52.0); HEMOGLOBIN 12.2 g/dl (13.5-17.5); LYMPH # 0.6 10^3/uL (1.5-5.0); LYMPH % 12.2 % (24.0-44.0); MEAN CORPUSCULAR HEMOGLOBIN 33.2 pg (27.0-33.0); MEAN CORPUSCULAR HGB CONC 32.4 g/dl (32.0-36.5); MEAN CORPUSCULAR VOLUME 102.2 fl (80.0-96.0); MONO # 0.4 10^3/uL (0.0-0.8); MONO % 7.6 % (0.0-5.0); NEUTROPHILS % 77.5 % (36.0-66.0); PLATELET COUNT, AUTOMATED 229 10^3/uL (150-450); RED BLOOD COUNT 3.68 10^6/uL (4.30-6.10); WHITE BLOOD COUNT 5.2 10^3/uL (4.0-10.0)
[2019-03-25 18:30] LABS: CREATININE, URINE 56.4 MG/DL; MALB URINE SIEMENS 11.9 MG/L
[2019-03-25 19:03] LABS: HEMOGLOBIN A1c 5.2 %
== END ==
LOC: M SFHCCLAY 10:28
PROVIDERS: ATTEND Family Medicine
DX: D50.9 Iron deficiency anemia, unspecified (principal); I10 Essential (primary) hypertension; Z79.899 Other long term (current) drug therapy

== ENCOUNTER 2019-06-05 11:53 | Emergency (ER) | payer MEDICARE ==
[~2019-06-05] VITALS: Ht 170.2 cm; Wt 144.7 kg
[2019-06-05] MEDS ORDERED: NS 1,000 ML IV SCH (12:41)
[2019-06-05] MEDS ORDERED: ASPIRIN 81 MG CHEW TABLET PO ONE (12:45)
[2019-06-05 12:46] LABS: BASO % 0.3 % (0.0-1.0); EOS # 0.4 10^3/uL (0.0-0.5); EOS % 6.8 % (0.0-3.0); HEMATOCRIT 33.8 % (42.0-52.0); HEMOGLOBIN 11.1 g/dl (13.5-17.5); LYMPH # 0.4 10^3/uL (1.5-5.0); LYMPH % 6.8 % (24.0-44.0); MEAN CORPUSCULAR HGB CONC 32.8 g/dl (32.0-36.5); MEAN CORPUSCULAR VOLUME 97.4 fl (80.0-96.0); MONO # 0.4 10^3/uL (0.0-0.8); MONO % 6.5 % (0.0-5.0); NEUTROPHILS % 79.4 % (36.0-66.0); PLATELET COUNT, AUTOMATED 242 10^3/uL (150-450); RED BLOOD COUNT 3.47 10^6/uL (4.30-6.10); WHITE BLOOD COUNT 6.3 10^3/uL (4.0-10.0)
[2019-06-05] MEDS ORDERED: METO1TAB7 PO (12:48)
[2019-06-05] MEDS ORDERED: TORS10TA3 PO ×2 (12:48)
[2019-06-05] MEDS ORDERED: FERR325T3 PO (12:48)
[2019-06-05 12:50] LABS: VENOUS BASE EXCESS 2.5 (-2.0-2.0); VENOUS HCO3 25.9 MEQ/L (23.0-27.0); VENOUS O2 SATURATION 99.3 % (60.0-80.0); VENOUS PARTIAL PRESSURE CO2 35.8 mmHg (38.0-50.0); VENOUS PARTIAL PRESSURE O2 133.9 mmHg (30.0-50.0); VENOUS PH 7.478 UNITS (7.330-7.430); VENOUS STANDARD HCO3 26.8 MEQ/L
--- NOTE | 2019-06-05 12:50 | REP ---
Clinical: Shortness of breath. Comparison: 12/17/2018. Findings: Cardiomegaly is stable. Chronic interstitial changes are appreciated. Superimposed pulmonary vascular congestion and interstitial edema cannot be excluded. No effusion. No focal consolidation. No pneumothorax. Impression: Cardiomegaly and chronic changes. Cannot exclude pulmonary vascular congestion and interstitial edema. Electronically Signed by Ahsan Narvaez MD 06/05/2019 12:41 P
[2019-06-05] MEDS ORDERED: diclofenac TOP (12:51)
[2019-06-05 13:11] LABS: INR 2.79; PROTHROMBIN TIME 29.3 SECONDS (11.8-14.0)
[2019-06-05 13:17] LABS: BLOOD UREA NITROGEN 36 MG/DL (7-18); CALCIUM LEVEL 10.2 MG/DL (8.8-10.2); CARBON DIOXIDE LEVEL 30 MEQ/L (21-32); CHLORIDE LEVEL 105 MEQ/L (98-107); CPK CREATINE PHOSPHOKINASE 92 U/L (39-308); CREATININE FOR GFR 1.79 MG/DL (0.70-1.30); GLOMERULAR FILTRATION RATE 39.8 (>42); GLUCOSE, FASTING 109 MG/DL (70-100); LIPASE 82 U/L (73-393); MB/CK RELATIVE INDEX 1.09 (< OR =4); SODIUM LEVEL 142 MEQ/L (136-145); TROPONIN I < 0.02 NG/ML (< 0.10)
[2019-06-05] MEDS ORDERED: VOLT1GEL15 TOP (13:58)
[2019-06-05] MEDS ORDERED: ACET-897 PO (13:58)
[2019-06-05] MEDS ORDERED: TORSEMIDE 20 MG TAB PO ONE (14:00)
[2019-06-05 14:14] VITALS: BP 130/63
--- NOTE | 2019-06-05 18:03 | ECGEPIP ---
[facility] - ED Test Date: 2019-06-05 Pat Name: EMILIANO WHITEHEAD Department: Room: - Gender: Male Aquatics Director: elsy : 1945 Requested By: Arielle Carrillo Order Number: [id number] Reading MD: Jose E Packer Measurements Intervals [place] Rate: 89 P: CT: 0 QRS: -45 QRSD: 139 T: 92 QT: 432 QTc: 528 Interpretive Statements ELECTRONIC VENTRICULAR PACEMAKER SIMILAR TO 11/04/18 Electronically Signed on 06-05-2019 18:03:26 EST by Jose E Packer
== END 2019-06-05 14:23 | disposition home or self-care (01) ==
LOC: M ED 11:53
DX: I49.9 Cardiac arrhythmia, unspecified (principal); I11.0 Hypertensive heart disease with heart failure; Z95.0 Presence of cardiac pacemaker; G47.30 Sleep apnea, unspecified; N40.0 Benign prostatic hyperplasia without lower urinary tract symptoms; Z88.0 Allergy status to penicillin; Z79.01 Long term (current) use of anticoagulants; Z79.82 Long term (current) use of aspirin; Z79.899 Other long term (current) drug therapy

== ENCOUNTER → 2019-07-06 | Outpatient (REF) | payer MEDICARE ==
[~2019-07-06] MED LIST changes: +FERR325T3 PO; +METO1TAB7 PO; +TORS10TA3 PO; +VOLT1GEL15 TOP; +diclofenac TOP
[2019-07-06 17:10] LABS: CALCIUM LEVEL 9.7 MG/DL (8.8-10.2); CREATININE FOR GFR 1.8 MG/DL (0.70-1.30); GLOMERULAR FILTRATION RATE 39.6 (>42); POTASSIUM SERUM 4.7 MEQ/L (3.5-5.1)
== END ==
LOC: M LABDRAWC 16:24
PROVIDERS: ATTEND Internal Medicine Cardiovascular Disease
DX: I50.9 Heart failure, unspecified (principal); I48.0 Paroxysmal atrial fibrillation

== ENCOUNTER → 2019-07-22 | Outpatient (REF) | payer MEDICARE ==
[2019-07-22 12:10] LABS: INR 2.22; PROTHROMBIN TIME 24.4 SECONDS (11.8-14.0)
== END ==
LOC: M LABDRAWC 11:14
PROVIDERS: ATTEND Internal Medicine
DX: Z79.01 Long term (current) use of anticoagulants (principal); I48.91 Unspecified atrial fibrillation

== ENCOUNTER → 2019-07-22 | Outpatient (REF) | payer MEDICARE ==
[2019-07-22 11:27] LABS: BASO % 0.4 % (0.0-1.0); EOS # 0.2 10^3/uL (0.0-0.5); EOS % 4.1 % (0.0-3.0); HEMATOCRIT 38.2 % (42.0-52.0); HEMOGLOBIN 12.2 g/dl (13.5-17.5); LYMPH # 0.6 10^3/uL (1.5-5.0); LYMPH % 10.7 % (24.0-44.0); MEAN CORPUSCULAR HEMOGLOBIN 32.1 pg (27.0-33.0); MEAN CORPUSCULAR HGB CONC 31.9 g/dl (32.0-36.5); MEAN CORPUSCULAR VOLUME 100.5 fl (80.0-96.0); MONO # 0.4 10^3/uL (0.0-0.8); MONO % 7.6 % (0.0-5.0); NEUTROPHILS # 4.2 10^3/uL (1.5-8.5); PLATELET COUNT, AUTOMATED 227 10^3/uL (150-450); WHITE BLOOD COUNT 5.4 10^3/uL (4.0-10.0)
[2019-07-22 11:36] LABS: ALBUMIN 3.7 GM/DL (3.2-5.2); ALT/SGPT 25 U/L (12-78); BILIRUBIN,TOTAL 0.6 MG/DL (0.2-1.0); BLOOD UREA NITROGEN 30 MG/DL (7-18); CALCIUM LEVEL 9.6 MG/DL (8.8-10.2); CARBON DIOXIDE LEVEL 27 MEQ/L (21-32); CHLORIDE LEVEL 108 MEQ/L (98-107); CREATININE FOR GFR 1.64 MG/DL (0.70-1.30); GLOMERULAR FILTRATION RATE 44.1 (>42); GLUCOSE, FASTING 97 MG/DL (70-100); MAGNESIUM LEVEL 2.5 MG/DL (1.8-2.4); POTASSIUM SERUM 3.8 MEQ/L (3.5-5.1); SODIUM LEVEL 142 MEQ/L (136-145); TOTAL PROTEIN 8.3 GM/DL (6.4-8.2)
[2019-07-22 11:43] LABS: VITAMIN B12 LEVEL 927 PG/ML (247-911)
[2019-07-23 07:56] LABS: ALBUMIN 4.08 GM/DL (3.29-5.55); ALBUMIN % 49.2 % (55.8-66.1); ALPHA-1-GLOBULIN % 4.9 % (2.9-4.9); ALPHA-1-GLOBULINS 0.41 GM/DL (0.17-0.41); ALPHA-2-GLOBULINS 0.61 GM/DL (0.42-0.99); ALPHA-2-GLOBULINS % 7.4 % (7.1-11.8); BETA-1-GLOBULINS 0.49 GM/DL (0.28-0.60); BETA-1-GLOBULINS % 5.9 % (4.7-7.2); BETA-2-GLOBULINS 0.42 GM/DL (0.19-0.55); GAMMA GLOBULIN % 27.6 % (11.1-18.8); GAMMA GLOBULINS 2.29 GM/DL (0.65-1.58)
[2019-07-24 08:10] LABS: FREE KAPPA LIGHT CHAINS URINE 10.93 mg/L (0.63-113.79); FREE LAMBDA LIGHT CHAINS SERUM 27.4 mg/L (5.7-26.3); FREE LAMBDA LIGHT CHAINS URINE 0.9 mg/L (0.47-11.77); KAPPA/LAMBDA RATIO SERUM 8.94 (0.26-1.65); KAPPA/LAMBDA RATIO URINE 12.14 (1.03-31.76)
== END ==
LOC: M SFHCCLAY 08:38
PROVIDERS: ATTEND Family Medicine
DX: D50.9 Iron deficiency anemia, unspecified (principal); I50.32 Chronic diastolic (congestive) heart failure; D47.2 Monoclonal gammopathy; Z12.5 Encounter for screening for malignant neoplasm of prostate; Z79.01 Long term (current) use of anticoagulants; I48.91 Unspecified atrial fibrillation
CPT/HCPCS: 36415; 80053; 82607; 83735; 83883; 84165; 85025; 85046; 85610; G0103

== ENCOUNTER → 2019-08-26 | Outpatient (REF) | payer MEDICARE ==
[2019-08-26 17:16] LABS: INR 3.21; PROTHROMBIN TIME 32.8 SECONDS (11.8-14.0)
== END ==
LOC: M LABDRAWC 15:49
PROVIDERS: ATTEND Internal Medicine
DX: Z79.01 Long term (current) use of anticoagulants (principal); I48.91 Unspecified atrial fibrillation

== ENCOUNTER → 2019-09-21 | Outpatient (REF) | payer MEDICARE ==
[2019-09-21 11:59] LABS: INR 2.67; PROTHROMBIN TIME 28.3 SECONDS (11.8-14.0)
== END ==
LOC: M LABDRAWC 11:16
PROVIDERS: ATTEND Internal Medicine
DX: Z79.01 Long term (current) use of anticoagulants (principal)

== ENCOUNTER → 2019-10-19 | Outpatient (REF) | payer MEDICARE ==
[2019-10-19 12:16] LABS: INR 2.12; PROTHROMBIN TIME 23.5 SECONDS (11.8-14.0)
== END ==
LOC: M LABDRAWC 11:19
PROVIDERS: ATTEND Internal Medicine
DX: I48.91 Unspecified atrial fibrillation (principal); Z79.01 Long term (current) use of anticoagulants

== ENCOUNTER → 2019-11-04 | Outpatient (REF) | payer MEDICARE ==
[~2019-11-04] MED LIST changes: -AMIO200T PO; +AMIO200T3 PO
[2019-11-04 14:03] LABS: PROTHROMBIN TIME 31.1 SECONDS (11.8-14.0)
== END ==
LOC: M LABDRAWC 11:12
PROVIDERS: ATTEND Internal Medicine
DX: I48.91 Unspecified atrial fibrillation (principal); Z79.01 Long term (current) use of anticoagulants

== ENCOUNTER → 2019-12-02 | Outpatient (REF) | payer MEDICARE ==
[2020-01-04 10:43] LABS: INR 3.96; PROTHROMBIN TIME 39.6 SECONDS (11.8-14.0)
== END ==
LOC: M LABDRAWC 13:05
PROVIDERS: ATTEND Internal Medicine
DX: Z79.01 Long term (current) use of anticoagulants (principal); I48.91 Unspecified atrial fibrillation

== ENCOUNTER → 2019-12-16 | Outpatient (REF) | payer MEDICARE ==
[2019-12-16 14:16] LABS: INR 3.91; PROTHROMBIN TIME 39.2 SECONDS (11.8-14.0)
== END ==
LOC: M LABDRAWC 09:05
PROVIDERS: ATTEND Internal Medicine
DX: I48.91 Unspecified atrial fibrillation (principal); Z79.01 Long term (current) use of anticoagulants

== ENCOUNTER → 2019-12-30 | Outpatient (REF) | payer MEDICARE ==
[2019-12-30 17:52] LABS: INR 3.19; PROTHROMBIN TIME 33.4 SECONDS (11.8-14.0)
== END ==
LOC: M LABDRAWC 14:48
PROVIDERS: ATTEND Internal Medicine
DX: I48.91 Unspecified atrial fibrillation (principal); Z79.01 Long term (current) use of anticoagulants

== ENCOUNTER → 2020-02-03 | Outpatient (REF) | payer MEDICARE ==
[2020-02-03 12:17] LABS: INR 2.4; PROTHROMBIN TIME 26.7 SECONDS (12.5-14.3)
== END ==
LOC: M LABDRAWC 11:09
PROVIDERS: ATTEND Internal Medicine
DX: I48.91 Unspecified atrial fibrillation (principal); Z79.01 Long term (current) use of anticoagulants

== ENCOUNTER → 2020-02-24 | Outpatient (REF) | payer MEDICARE | LOC: M SFHCCLAY 12:34 | PROVIDERS: ATTEND Family Medicine | DX: Z53.9 Procedure and treatment not carried out, unspecified reason (principal); D47.2 Monoclonal gammopathy; E78.2 Mixed hyperlipidemia; R73.01 Impaired fasting glucose ==

== ENCOUNTER → 2020-02-24 | Outpatient (REF) | payer MEDICARE ==
[2020-02-24 14:12] LABS: INR 2.09; PROTHROMBIN TIME 23.9 SECONDS (12.5-14.3)
== END ==
LOC: M LABDRAWC 11:36
PROVIDERS: ATTEND Internal Medicine
DX: I48.91 Unspecified atrial fibrillation (principal); Z79.01 Long term (current) use of anticoagulants

== ENCOUNTER → 2020-02-24 | Outpatient (REF) | payer MEDICARE ==
[2020-02-24 14:06] LABS: BASO % 0.4 % (0.0-1.0); EOS # 0.3 10^3/uL (0.0-0.5); EOS % 5.7 % (0.0-3.0); HEMATOCRIT 38.2 % (42.0-52.0); HEMOGLOBIN 11.7 g/dl (13.5-17.5); LYMPH # 0.5 10^3/uL (1.5-5.0); MEAN CORPUSCULAR HGB CONC 30.6 g/dl (32.0-36.5); MEAN CORPUSCULAR VOLUME 104.4 fl (80.0-96.0); MONO # 0.4 10^3/uL (0.0-0.8); MONO % 6.9 % (0.0-5.0); NEUTROPHILS # 3.9 10^3/uL (1.5-8.5); NEUTROPHILS % 76.8 % (36.0-66.0); PLATELET COUNT, AUTOMATED 190 10^3/uL (150-450); RED BLOOD COUNT 3.66 10^6/uL (4.30-6.10); WHITE BLOOD COUNT 5.1 10^3/uL (4.0-10.0)
[2020-02-24 19:40] LABS: ALBUMIN 3.7 GM/DL (3.2-5.2); ALT/SGPT 28 U/L (12-78); BILIRUBIN,TOTAL 0.6 MG/DL (0.2-1.0); BLOOD UREA NITROGEN 24 MG/DL (7-18); CARBON DIOXIDE LEVEL 31 MEQ/L (21-32); CHLORIDE LEVEL 108 MEQ/L (98-107); CHOLESTEROL LEVEL 97 MG/DL (<200); CHOLESTEROL RISK RATIO 2.309 (<5); CREATININE FOR GFR 1.46 MG/DL (0.70-1.30); FREE T4 1.15 NG/DL (0.76-1.46); GLOMERULAR FILTRATION RATE 50.2 (>42); GLUCOSE, FASTING 101 MG/DL (70-100); HDL CHOLESTEROL 42 MG/DL (>40); IMMUNOGLOBULIN G 1850 MG/DL (681-1648); IMMUNOGLOBULIN M 63.5 MG/DL (40-230); LDL CHOLESTEROL 37 MG/DL (<100); NON-HDL-C 55 MG/DL; POTASSIUM SERUM 4.3 MEQ/L (3.5-5.1); SODIUM LEVEL 142 MEQ/L (136-145); THYROID STIMULATING HORMONE 0.839 uIU/ML (0.358-3.740); TRIGLYCERIDES LEVEL 88 MG/DL (<150)
[2020-02-25 12:02] LABS: ALBUMIN 4.13 GM/DL (3.29-5.55); ALBUMIN % 51.6 % (55.8-66.1); ALPHA-1-GLOBULIN % 5.2 % (2.9-4.9); ALPHA-1-GLOBULINS 0.42 GM/DL (0.17-0.41); ALPHA-2-GLOBULINS 0.64 GM/DL (0.42-0.99); BETA-1-GLOBULINS 0.46 GM/DL (0.28-0.60); BETA-1-GLOBULINS % 5.7 % (4.7-7.2); BETA-2-GLOBULINS 0.38 GM/DL (0.19-0.55); BETA-2-GLOBULINS % 4.8 % (3.2-6.5); GAMMA GLOBULIN % 24.7 % (11.1-18.8); GAMMA GLOBULINS 1.98 GM/DL (0.65-1.58)
[2020-02-26 05:07] LABS: FREE KAPPA LIGHT CHAINS SERUM 212.8 mg/L (3.3-19.4); FREE KAPPA LIGHT CHAINS URINE 145.33 mg/L (0.63-113.79); FREE LAMBDA LIGHT CHAINS SERUM 23.3 mg/L (5.7-26.3); FREE LAMBDA LIGHT CHAINS URINE 8.87 mg/L (0.47-11.77); INSULIN LEVEL 28.7 uIU/mL (2.6-24.9); KAPPA/LAMBDA RATIO SERUM 9.13 (0.26-1.65); KAPPA/LAMBDA RATIO URINE 16.38 (1.03-31.76)
== END ==
LOC: M SFHCPLAZ 11:38
PROVIDERS: ATTEND Family Medicine
DX: D47.2 Monoclonal gammopathy (principal); E78.2 Mixed hyperlipidemia; R73.01 Impaired fasting glucose

== ENCOUNTER → 2020-03-30 | Outpatient (REF) | payer MEDICARE ==
[2020-03-30 12:36] LABS: INR 3.07; PROTHROMBIN TIME 32.4 SECONDS (12.5-14.3)
== END ==
LOC: M LABDRAWC 12:05
PROVIDERS: ATTEND Internal Medicine
DX: Z79.899 Other long term (current) drug therapy (principal); Z79.01 Long term (current) use of anticoagulants

== ENCOUNTER → 2020-04-12 | Outpatient (REF) | payer MEDICARE ==
[2020-04-12 17:04] LABS: CALCIUM LEVEL 9.8 MG/DL (8.8-10.2); CREATININE FOR GFR 1.8 MG/DL (0.70-1.30); GLOMERULAR FILTRATION RATE 39.5 (>42)
== END ==
LOC: M LABDRAWC 15:49
PROVIDERS: ATTEND Internal Medicine Cardiovascular Disease
DX: I48.0 Paroxysmal atrial fibrillation (principal); I47.2 Ventricular tachycardia; I50.30 Unspecified diastolic (congestive) heart failure

== ENCOUNTER → 2020-05-04 | Outpatient (REF) | payer MEDICARE ==
[2020-05-04 13:19] LABS: INR 2.55
== END ==
LOC: M LABDRAWC 11:38
PROVIDERS: ATTEND Internal Medicine
DX: I48.91 Unspecified atrial fibrillation (principal); Z79.01 Long term (current) use of anticoagulants

== ENCOUNTER → 2020-06-01 | Outpatient (REF) | payer MEDICARE ==
[~2020-06-01] MED LIST changes: +ISOS1TAB35 PO; -ISOS30TA4 PO; -LISI-538 PO; +LISI20TA33 PO
[2020-06-01 11:58] LABS: INR 3.17; PROTHROMBIN TIME 33.2 SECONDS (12.5-14.3)
== END ==
LOC: M LABDRAWC 11:21
PROVIDERS: ATTEND Internal Medicine
DX: I48.91 Unspecified atrial fibrillation (principal); Z79.01 Long term (current) use of anticoagulants

== ENCOUNTER → 2020-06-29 | Outpatient (REF) | payer MEDICARE ==
[2020-06-29 19:08] LABS: INR 2.3; PROTHROMBIN TIME 25.8 SECONDS (12.5-14.3)
== END ==
LOC: M LABDRAWC 16:34
PROVIDERS: ATTEND Internal Medicine
DX: I48.91 Unspecified atrial fibrillation (principal); Z79.01 Long term (current) use of anticoagulants

== ENCOUNTER → 2020-06-29 | Outpatient (REF) | payer MEDICARE ==
[2020-06-29 16:45] LABS: ALT/SGPT 40 U/L (12-78); BILIRUBIN,TOTAL 0.6 MG/DL (0.2-1.0); BLOOD UREA NITROGEN 38 MG/DL (7-18); CALCIUM LEVEL 10.1 MG/DL (8.8-10.2); CARBON DIOXIDE LEVEL 30 MEQ/L (21-32); CHLORIDE LEVEL 106 MEQ/L (98-107); CREATININE FOR GFR 1.68 MG/DL (0.70-1.30); FERRITIN 146 NG/ML (26-388); GLOMERULAR FILTRATION RATE 42.7 (>42); GLUCOSE, FASTING 103 MG/DL (70-100); IRON (FE) 97 UG/DL (65-175); PERCENT SATURATION 29.8 % (19.7-50.0); POTASSIUM SERUM 4.7 MEQ/L (3.5-5.1); SODIUM LEVEL 141 MEQ/L (136-145); TOTAL IRON BINDING CAPACITY 326 UG/DL (250-450); TOTAL PROTEIN 8.3 GM/DL (6.4-8.2)
[2020-06-29 17:19] LABS: BASO % 0.7 % (0.0-1.0); EOS # 0.2 10^3/uL (0.0-0.5); EOS % 3.1 % (0.0-3.0); HEMATOCRIT 41.4 % (42.0-52.0); LYMPH # 0.7 10^3/uL (1.5-5.0); LYMPH % 11.7 % (24.0-44.0); MEAN CORPUSCULAR HEMOGLOBIN 33.1 pg (27.0-33.0); MEAN CORPUSCULAR HGB CONC 31.4 g/dl (32.0-36.5); MEAN CORPUSCULAR VOLUME 105.3 fl (80.0-96.0); MONO # 0.4 10^3/uL (0.0-0.8); MONO % 7.5 % (2.0-8.0); NEUTROPHILS # 4.5 10^3/uL (1.5-8.5); NEUTROPHILS % 76.8 % (36.0-66.0); PLATELET COUNT, AUTOMATED 217 10^3/uL (150-450); RED BLOOD COUNT 3.93 10^6/uL (4.30-6.10); WHITE BLOOD COUNT 5.9 10^3/uL (4.0-10.0)
[2020-06-29 17:30] LABS: PTH INTACT 149.7 PG/ML (18.5-88.0); TOTAL 25(OH) VITAMIN D 55.4 NG/ML (30.0-100.0)
[2020-06-29 18:51] LABS: HEMOGLOBIN A1c 5.3 %
[2020-06-30 12:46] LABS: ALBUMIN 4.21 GM/DL (3.29-5.55); ALBUMIN % 50.7 % (55.8-66.1); ALPHA-1-GLOBULINS 0.42 GM/DL (0.17-0.41); ALPHA-2-GLOBULINS 0.63 GM/DL (0.42-0.99); ALPHA-2-GLOBULINS % 7.6 % (7.1-11.8); BETA-1-GLOBULINS 0.47 GM/DL (0.28-0.60); BETA-1-GLOBULINS % 5.7 % (4.7-7.2); BETA-2-GLOBULINS 0.42 GM/DL (0.19-0.55); GAMMA GLOBULINS 2.16 GM/DL (0.65-1.58)
[2020-07-02 05:11] LABS: FREE KAPPA LIGHT CHAINS SERUM 205.9 mg/L (3.3-19.4); FREE KAPPA LIGHT CHAINS URINE 15.54 mg/L (0.63-113.79); FREE LAMBDA LIGHT CHAINS SERUM 27.9 mg/L (5.7-26.3); FREE LAMBDA LIGHT CHAINS URINE 1.1 mg/L (0.47-11.77); INSULIN LEVEL 31.5 uIU/mL (2.6-24.9); KAPPA/LAMBDA RATIO SERUM 7.38 (0.26-1.65); KAPPA/LAMBDA RATIO URINE 14.13 (1.03-31.76)
== END ==
LOC: M SFHCCLAY 09:27
PROVIDERS: ATTEND Family Medicine
DX: D47.2 Monoclonal gammopathy (principal); D50.9 Iron deficiency anemia, unspecified; E78.2 Mixed hyperlipidemia; E55.9 Vitamin D deficiency, unspecified; I48.91 Unspecified atrial fibrillation; Z79.01 Long term (current) use of anticoagulants; Z79.899 Other long term (current) drug therapy

== ENCOUNTER → 2020-08-03 | Outpatient (REF) | payer MEDICARE ==
[2020-08-03 17:18] LABS: INR 2.41; PROTHROMBIN TIME 26.8 SECONDS (12.5-14.3)
== END ==
LOC: M LABDRAWC 15:47
PROVIDERS: ATTEND Internal Medicine
DX: I48.91 Unspecified atrial fibrillation (principal); Z79.01 Long term (current) use of anticoagulants

== ENCOUNTER → 2020-09-07 | Outpatient (REF) | payer MEDICARE ==
[2020-09-07 12:01] LABS: INR 2.3; PROTHROMBIN TIME 25.8 SECONDS (12.5-14.3)
== END ==
LOC: M LABDRAWC 11:34
PROVIDERS: ATTEND Internal Medicine
DX: I48.91 Unspecified atrial fibrillation (principal)

== ENCOUNTER → 2020-09-28 | Outpatient (REF) | payer MEDICARE ==
[2020-09-28 11:58] LABS: INR 2.95; PROTHROMBIN TIME 31.4 SECONDS (12.5-14.3)
== END ==
LOC: M LABDRAWC 11:09
PROVIDERS: ATTEND Internal Medicine
DX: I48.91 Unspecified atrial fibrillation (principal)

== ENCOUNTER → 2020-10-19 | Outpatient (REF) | payer MEDICARE ==
[2020-10-19 12:10] LABS: PROTHROMBIN TIME 23.1 SECONDS (12.5-14.3)
== END ==
LOC: M LABDRAWC 11:25
PROVIDERS: ATTEND Internal Medicine
DX: I48.91 Unspecified atrial fibrillation (principal)

== ENCOUNTER → 2020-10-26 | Outpatient (REF) | payer MEDICARE ==
[2020-10-26 17:18] LABS: INR 2.46; PROTHROMBIN TIME 27.2 SECONDS (12.5-14.3)
== END ==
LOC: M LABDRAWC 15:52
PROVIDERS: ATTEND Internal Medicine
DX: I48.91 Unspecified atrial fibrillation (principal)

== ENCOUNTER → 2020-11-10 | Outpatient (REF) | payer MEDICARE ==
[2020-11-10 16:20] LABS: BASO % 0.6 % (0.0-1.0); EOS # 0.5 10^3/uL (0.0-0.5); HEMATOCRIT 41.2 % (42.0-52.0); HEMOGLOBIN 13.1 g/dl (13.5-17.5); LYMPH # 0.9 10^3/uL (1.5-5.0); LYMPH % 12.4 % (24.0-44.0); MEAN CORPUSCULAR HGB CONC 31.8 g/dl (32.0-36.5); MEAN CORPUSCULAR VOLUME 103.8 fl (80.0-96.0); MONO # 0.6 10^3/uL (0.0-0.8); MONO % 7.9 % (2.0-8.0); NEUTROPHILS # 5.2 10^3/uL (1.5-8.5); NEUTROPHILS % 71.1 % (36.0-66.0); PLATELET COUNT, AUTOMATED 232 10^3/uL (150-450); RED BLOOD COUNT 3.97 10^6/uL (4.30-6.10); WHITE BLOOD COUNT 7.2 10^3/uL (4.0-10.0)
[2020-11-10 16:43] LABS: CREATININE,RANDOM URINE 20.8 MG/DL; TOTAL PROTEIN,RANDOM URINE < 5.0 MG/DL (0.0-12.0)
[2020-11-10 16:56] LABS: CHOLESTEROL RISK RATIO 4.833 (<5); FREE T4 1.14 NG/DL (0.76-1.46); IMMUNOGLOBULIN M 77.6 MG/DL (40-230); PTH INTACT 122.8 PG/ML (18.5-88.0); THYROID STIMULATING HORMONE 0.825 uIU/ML (0.358-3.740); TOTAL 25(OH) VITAMIN D 54.4 NG/ML (30.0-100.0)
== END ==
LOC: M SFHCCLAY 09:30
PROVIDERS: ATTEND Family Medicine
DX: D47.2 Monoclonal gammopathy (principal); E78.2 Mixed hyperlipidemia; Z12.5 Encounter for screening for malignant neoplasm of prostate; N18.30 Chronic kidney disease, stage 3 unspecified; E53.8 Deficiency of other specified B group vitamins
CPT/HCPCS: 80061; 82306; 82570; 82607; 82784; 83970; 84156; 84439; 84443; 85025; G0103

== ENCOUNTER → 2020-11-16 | Outpatient (REF) | payer MEDICARE ==
[2020-11-16 16:16] LABS: INR 3.02
== END ==
LOC: M LABDRAWC 15:39
PROVIDERS: ATTEND Internal Medicine
DX: I48.91 Unspecified atrial fibrillation (principal)

== ENCOUNTER → 2020-12-14 | Outpatient (REF) | payer MEDICARE ==
[2020-12-14 12:17] LABS: INR 2.32; PROTHROMBIN TIME 25.9 SECONDS (12.7-14.5)
== END ==
LOC: M LABDRAWC 11:43
PROVIDERS: ATTEND Internal Medicine
DX: I48.91 Unspecified atrial fibrillation (principal)

== ENCOUNTER → 2021-01-16 | Outpatient (CLI) | payer MEDICARE ==
--- NOTE | 2021-01-18 02:52 | REPVR ---
PROCEDURE INFORMATION: Exam: CT Lumbar Spine Without Contrast Exam date and time: 01/16/2021 1:16 PM Age: 75 years old Clinical indication: Low back pain; Additional info: Lumbar spondylosis TECHNIQUE: Imaging protocol: Computed tomography images of the lumbar spine without contrast. Radiation optimization: All CT scans at this facility use at least one of these dose optimization techniques: automated exposure control; mA and/or kV adjustment per patient size (includes targeted exams where dose is matched to clinical indication); or iterative reconstruction. COMPARISON: CT ABD PELVIS W/O CONTRAST 02/07/2018 12:44 PM FINDINGS: Vertebrae: Normal vertebral body alignment. No acute fracture. No destructive bone lesions. Discs/Spinal canal/Neural foramina: Advanced discogenic and facet degenerative changes. Posterior disc bulging and facet DJD cause spinal stenosis at and severe left foraminal stenosis L4-L5. Calcified disc osteophyte complex and advanced facet DJD causing severe left L5-S1 foraminal stenosis. Soft tissues: Unremarkable. IMPRESSION: 1. Advanced degenerative spondylosis. 2. Spinal stenosis and severe left foraminal stenosis at L4-L5. 3. Severe left L5-S1 foraminal stenosis. Electronically signed by: Tristin Frias On 01/18/2021 02:52:02 AM
== END ==
LOC: M PLAIMG 12:17
PROVIDERS: ATTEND Family Medicine
DX: M47.816 Spondylosis without myelopathy or radiculopathy, lumbar region (principal); M48.061 Spinal stenosis, lumbar region without neurogenic claudication; M48.07 Spinal stenosis, lumbosacral region

== ENCOUNTER → 2021-01-18 | Outpatient (REF) | payer MEDICARE ==
[2021-01-18 16:29] LABS: INR 2.87; PROTHROMBIN TIME 30.4 SECONDS (12.7-14.5)
== END ==
LOC: M LABDRAWC 15:25
PROVIDERS: ATTEND Internal Medicine
DX: I48.91 Unspecified atrial fibrillation (principal)

== ENCOUNTER → 2021-02-15 | Outpatient (REF) | payer MEDICARE ==
[2021-02-15 16:08] LABS: INR 4.18; PROTHROMBIN TIME 40.5 SECONDS (12.7-14.5)
== END ==
LOC: M LABDRAWC 15:43
PROVIDERS: ATTEND Internal Medicine
DX: I48.91 Unspecified atrial fibrillation (principal)

== ENCOUNTER → 2021-02-27 | Outpatient (CLI) | payer MEDICARE ==
--- NOTE | 2021-02-27 14:53 | REP ---
INDICATION: SHORTNESS OF BREATH. COMPARISON: Multiple latest 06/05/2019 TECHNIQUE: PA and lateral FINDINGS: There is cardiomegaly status quo. The dual chamber bipolar pacemaker device status quo. Increased interstitial markings status quo. No acute patchy parenchymal opacities or pleural effusions have developed. There is no change in the osseous structures. IMPRESSION: Stable chronic lung field changes. <Electronically signed by Liborio Newell > 02/27/21 [id number]
== END ==
LOC: M PLAIMG 12:30
PROVIDERS: ATTEND Internal Medicine Cardiovascular Disease
DX: R06.02 Shortness of breath (principal); I51.7 Cardiomegaly; Z95.0 Presence of cardiac pacemaker

== ENCOUNTER → 2021-03-06 | Outpatient (REF) | payer MEDICARE ==
[2021-03-06 16:51] LABS: INR 3.81; PROTHROMBIN TIME 37.7 SECONDS (12.7-14.5)
== END ==
LOC: M LABDRAWC 16:00
PROVIDERS: ATTEND Internal Medicine
DX: I48.91 Unspecified atrial fibrillation (principal); Z79.01 Long term (current) use of anticoagulants; Z95.2 Presence of prosthetic heart valve

== ENCOUNTER → 2021-03-06 | Outpatient (REF) | payer MEDICARE ==
[2021-03-06 16:48] LABS: BASO % 0.6 % (0.0-1.0); EOS # 0.3 10^3/uL (0.0-0.5); EOS % 4.6 % (0.0-3.0); HEMATOCRIT 39.4 % (42.0-52.0); HEMOGLOBIN 12.3 g/dl (13.5-17.5); LYMPH # 0.6 10^3/uL (1.5-5.0); LYMPH % 9.4 % (24.0-44.0); MEAN CORPUSCULAR HEMOGLOBIN 33.2 pg (27.0-33.0); MEAN CORPUSCULAR HGB CONC 31.2 g/dl (32.0-36.5); MEAN CORPUSCULAR VOLUME 106.2 fl (80.0-96.0); MONO # 0.4 10^3/uL (0.0-0.8); MONO % 5.9 % (2.0-8.0); NEUTROPHILS % 79.2 % (36.0-66.0); PLATELET COUNT, AUTOMATED 195 10^3/uL (150-450); RED BLOOD COUNT 3.71 10^6/uL (4.30-6.10); WHITE BLOOD COUNT 6.3 10^3/uL (4.0-10.0)
[2021-03-06 17:23] LABS: CALCIUM LEVEL 10.3 MG/DL (8.8-10.2); CREATININE FOR GFR 1.87 MG/DL (0.70-1.30); FREE T4 1.24 NG/DL (0.76-1.46); GLOMERULAR FILTRATION RATE 37.7 (>42); POTASSIUM SERUM 4.9 MEQ/L (3.5-5.1); THYROID STIMULATING HORMONE 1.44 uIU/ML (0.358-3.740)
== END ==
LOC: M LABDRAWC 15:54
PROVIDERS: ATTEND Internal Medicine Cardiovascular Disease
DX: I47.2 Ventricular tachycardia (principal); I48.0 Paroxysmal atrial fibrillation; I50.32 Chronic diastolic (congestive) heart failure; Z79.01 Long term (current) use of anticoagulants; Z95.2 Presence of prosthetic heart valve

== ENCOUNTER → 2021-03-22 | Outpatient (REF) | payer MEDICARE ==
[~2021-03-22] MED LIST changes: -AMIO200T3 PO; +AMIO200T49 PO
[2021-03-22 12:29] LABS: PROTHROMBIN TIME 50.8 SECONDS (12.7-14.5)
[2021-03-22 14:01] LABS: INR 5.62
== END ==
LOC: M LABDRAWC 11:49
PROVIDERS: ATTEND Internal Medicine
DX: I48.91 Unspecified atrial fibrillation (principal); Z79.01 Long term (current) use of anticoagulants; Z95.2 Presence of prosthetic heart valve

== ENCOUNTER → 2021-03-29 | Outpatient (REF) | payer MEDICARE ==
[~2021-03-29] MED LIST changes: +AMIO200T3 PO; -AMIO200T49 PO
[2021-03-29 16:25] LABS: INR 2.33; PROTHROMBIN TIME 25.9 SECONDS (12.7-14.5)
== END ==
LOC: M LABDRAWC 15:47
PROVIDERS: ATTEND Internal Medicine
DX: I48.91 Unspecified atrial fibrillation (principal); Z79.01 Long term (current) use of anticoagulants; Z95.2 Presence of prosthetic heart valve

== ENCOUNTER → 2021-04-05 | Outpatient (REF) | payer MEDICARE ==
[2021-04-05 16:48] LABS: INR 2.96; PROTHROMBIN TIME 31.2 SECONDS (12.7-14.5)
== END ==
LOC: M LABDRAWC 15:30
PROVIDERS: ATTEND Internal Medicine
DX: I48.91 Unspecified atrial fibrillation (principal); Z95.2 Presence of prosthetic heart valve; Z79.01 Long term (current) use of anticoagulants

== ENCOUNTER → 2021-04-26 | Outpatient (REF) | payer MEDICARE ==
[2021-04-26 12:14] LABS: INR 2.34; PROTHROMBIN TIME 26.1 SECONDS (12.7-14.5)
== END ==
LOC: M LABDRAWC 11:16
PROVIDERS: ATTEND Internal Medicine
DX: Z79.01 Long term (current) use of anticoagulants (principal)

== ENCOUNTER → 2021-05-02 | Outpatient (REF) | payer MEDICARE ==
[~2021-05-02] MED LIST changes: -AMIO200T3 PO; +AMIO200T49 PO
[2021-05-02 17:06] LABS: BASO # 0.1 10^3/uL (0.0-0.2); BASO % 0.8 % (0.0-1.0); EOS # 0.2 10^3/uL (0.0-0.5); EOS % 2.8 % (0.0-3.0); HEMATOCRIT 36.4 % (42.0-52.0); HEMOGLOBIN 11.2 g/dl (13.5-17.5); LYMPH # 0.8 10^3/uL (1.5-5.0); LYMPH % 12.6 % (24.0-44.0); MEAN CORPUSCULAR HEMOGLOBIN 35.8 pg (27.0-33.0); MEAN CORPUSCULAR HGB CONC 30.8 g/dl (32.0-36.5); MONO # 0.4 10^3/uL (0.0-0.8); MONO % 6.7 % (2.0-8.0); NEUTROPHILS # 4.7 10^3/uL (1.5-8.5); NEUTROPHILS % 76.8 % (36.0-66.0); PLATELET COUNT, AUTOMATED 268 10^3/uL (150-450); RED BLOOD COUNT 3.13 10^6/uL (4.30-6.10); WHITE BLOOD COUNT 6.1 10^3/uL (4.0-10.0)
[2021-05-02 17:10] LABS: MEAN CORPUSCULAR VOLUME 116.3 fl (80.0-96.0)
[2021-05-02 20:18] LABS: CALCIUM LEVEL 9.8 MG/DL (8.8-10.2); CREATININE FOR GFR 2.58 MG/DL (0.70-1.30); MAGNESIUM LEVEL 2.7 MG/DL (1.8-2.4); POTASSIUM SERUM 4.7 MEQ/L (3.5-5.1)
== END ==
LOC: M LABDRAWC 15:45
PROVIDERS: ATTEND Internal Medicine Cardiovascular Disease
DX: I50.23 Acute on chronic systolic (congestive) heart failure (principal)

== ENCOUNTER → 2021-05-09 | Outpatient (CLI) | payer MEDICARE ==
[2021-05-09 15:38] LABS: BASO % 0.4 % (0.0-1.0); EOS # 0.1 10^3/uL (0.0-0.5); EOS % 2.7 % (0.0-3.0); HEMATOCRIT 37.3 % (42.0-52.0); HEMOGLOBIN 11.6 g/dl (13.5-17.5); LYMPH # 0.4 10^3/uL (1.5-5.0); LYMPH % 8.9 % (24.0-44.0); MEAN CORPUSCULAR HEMOGLOBIN 35.7 pg (27.0-33.0); MEAN CORPUSCULAR HGB CONC 31.1 g/dl (32.0-36.5); MONO # 0.4 10^3/uL (0.0-0.8); MONO % 7.3 % (2.0-8.0); NEUTROPHILS # 3.9 10^3/uL (1.5-8.5); NEUTROPHILS % 80.5 % (36.0-66.0); PLATELET COUNT, AUTOMATED 207 10^3/uL (150-450); RED BLOOD COUNT 3.25 10^6/uL (4.30-6.10); WHITE BLOOD COUNT 4.8 10^3/uL (4.0-10.0)
[2021-05-09 15:40] LABS: MEAN CORPUSCULAR VOLUME 114.8 fl (80.0-96.0)
[2021-05-09 15:55] LABS: HEMOGLOBIN A1c 4.1 %
[2021-05-09 16:06] LABS: PLATELET ESTIMATE NORMAL (NORMAL)
[2021-05-09 16:14] LABS: ALBUMIN 3.8 GM/DL (3.2-5.2); BILIRUBIN,TOTAL 0.9 MG/DL (0.2-1.0); CALCIUM LEVEL 9.6 MG/DL (8.8-10.2); CREATININE FOR GFR 2.07 MG/DL (0.70-1.30); GLOMERULAR FILTRATION RATE 33.5 (>42); PHOSPHORUS LEVEL 3.1 MG/DL (2.5-4.9); POTASSIUM SERUM 4.7 MEQ/L (3.5-5.1); TOTAL PROTEIN 8.3 GM/DL (6.4-8.2)
[2021-05-09 16:15] LABS: PTH INTACT 197.1 PG/ML (18.5-88.0)
[2021-05-09 16:32] LABS: TOTAL 25(OH) VITAMIN D 44.1 NG/ML (30.0-100.0)
== END ==
LOC: M PLALAB 11:08
PROVIDERS: ATTEND Family Medicine
DX: D47.2 Monoclonal gammopathy (principal); E55.9 Vitamin D deficiency, unspecified; R73.01 Impaired fasting glucose; Z79.899 Other long term (current) drug therapy

== ENCOUNTER → 2021-05-09 | Outpatient (CLI) | payer MEDICARE ==
[2021-05-09 16:17] LABS: CALCIUM LEVEL 9.6 MG/DL (8.8-10.2); CREATININE FOR GFR 2.13 MG/DL (0.70-1.30); GLOMERULAR FILTRATION RATE 32.4 (>42); POTASSIUM SERUM 4.4 MEQ/L (3.5-5.1)
== END ==
LOC: M PLALAB 11:11
PROVIDERS: ATTEND Internal Medicine Cardiovascular Disease
DX: I50.9 Heart failure, unspecified (principal); Z79.01 Long term (current) use of anticoagulants

== ENCOUNTER → 2021-05-24 | Outpatient (REF) | payer MEDICARE ==
[2021-05-24 16:55] LABS: CALCIUM LEVEL 10.1 MG/DL (8.8-10.2); CREATININE FOR GFR 1.94 MG/DL (0.70-1.30); GLOMERULAR FILTRATION RATE 36.1 (>42); POTASSIUM SERUM 4.7 MEQ/L (3.5-5.1)
== END ==
LOC: M LABDRAWC 15:57
PROVIDERS: ATTEND Internal Medicine Cardiovascular Disease
DX: I48.0 Paroxysmal atrial fibrillation (principal); I50.32 Chronic diastolic (congestive) heart failure; Z51.81 Encounter for therapeutic drug level monitoring; Z79.01 Long term (current) use of anticoagulants

== ENCOUNTER → 2021-05-24 | Outpatient (REF) | payer MEDICARE ==
[2021-05-24 16:42] LABS: INR 3.8; PROTHROMBIN TIME 37.7 SECONDS (12.7-14.5)
== END ==
LOC: M LABDRAWC 15:55
PROVIDERS: ATTEND Internal Medicine
DX: Z51.81 Encounter for therapeutic drug level monitoring (principal); Z79.01 Long term (current) use of anticoagulants

== ENCOUNTER → 2021-06-05 | Outpatient (REF) | payer MEDICARE ==
[2021-06-05 12:01] LABS: INR 3.33; PROTHROMBIN TIME 34.1 SECONDS (12.7-14.5)
== END ==
LOC: M LABDRAWC 11:07
PROVIDERS: ATTEND Internal Medicine
DX: Z51.81 Encounter for therapeutic drug level monitoring (principal); Z79.01 Long term (current) use of anticoagulants

== ENCOUNTER → 2021-06-07 | Outpatient (CLI) | payer MEDICARE | LOC: M RAD 08:55 | PROVIDERS: ATTEND Nurse Practitioner Family | DX: N18.30 Chronic kidney disease, stage 3 unspecified (principal) ==

== ENCOUNTER → 2021-06-21 | Outpatient (REF) | payer MEDICARE ==
[2021-06-21 19:09] LABS: INR 4.07; PROTHROMBIN TIME 39.7 SECONDS (12.7-14.5)
== END ==
LOC: M LABDRAWC 15:41
PROVIDERS: ATTEND Internal Medicine
DX: I48.91 Unspecified atrial fibrillation (principal); Z95.2 Presence of prosthetic heart valve; Z79.01 Long term (current) use of anticoagulants

== ENCOUNTER → 2021-07-06 | Outpatient (REF) | payer MEDICARE ==
[2021-07-06 17:59] LABS: INR 3.44; PROTHROMBIN TIME 34.9 SECONDS (12.7-14.5)
== END ==
LOC: M LABDRAWC 15:36
PROVIDERS: ATTEND Internal Medicine
DX: I48.91 Unspecified atrial fibrillation (principal); Z79.01 Long term (current) use of anticoagulants

== ENCOUNTER → 2021-07-26 | Outpatient (REF) | payer MEDICARE ==
[2021-07-26 12:15] LABS: INR 3.83; PROTHROMBIN TIME 37.9 SECONDS (12.7-14.5)
== END ==
LOC: M LABDRAWC 11:34
PROVIDERS: ATTEND Internal Medicine
DX: I48.91 Unspecified atrial fibrillation (principal); Z95.2 Presence of prosthetic heart valve; Z79.01 Long term (current) use of anticoagulants

== ENCOUNTER → 2021-08-16 | Outpatient (REF) | payer MEDICARE ==
[2021-08-16 11:34] LABS: BASO % 0.5 % (0.0-1.0); EOS # 0.4 10^3/uL (0.0-0.5); EOS % 5.7 % (0.0-3.0); HEMATOCRIT 35.8 % (42.0-52.0); HEMOGLOBIN 11.6 g/dl (13.5-17.5); LYMPH # 0.7 10^3/uL (1.5-5.0); LYMPH % 10.9 % (24.0-44.0); MEAN CORPUSCULAR HEMOGLOBIN 34.2 pg (27.0-33.0); MEAN CORPUSCULAR HGB CONC 32.4 g/dl (32.0-36.5); MEAN CORPUSCULAR VOLUME 105.6 fl (80.0-96.0); MONO # 0.5 10^3/uL (0.0-0.8); MONO % 7.4 % (2.0-8.0); NEUTROPHILS # 4.8 10^3/uL (1.5-8.5); PLATELET COUNT, AUTOMATED 193 10^3/uL (150-450); RED BLOOD COUNT 3.39 10^6/uL (4.30-6.10); WHITE BLOOD COUNT 6.3 10^3/uL (4.0-10.0)
[2021-08-16 12:01] LABS: ALBUMIN 3.5 GM/DL (3.2-5.2); BILIRUBIN,TOTAL 0.9 MG/DL (0.2-1.0); CALCIUM LEVEL 9.5 MG/DL (8.8-10.2); CREATININE FOR GFR 1.79 MG/DL (0.70-1.30); GLOMERULAR FILTRATION RATE 39.6 (>42); MAGNESIUM LEVEL 2.5 MG/DL (1.8-2.4); POTASSIUM SERUM 4.8 MEQ/L (3.5-5.1); TOTAL PROTEIN 7.9 GM/DL (6.4-8.2)
[2021-08-16 12:03] LABS: PTH INTACT 137.4 PG/ML (18.5-88.0); TOTAL 25(OH) VITAMIN D 40.8 NG/ML (30.0-100.0)
[2021-08-18 06:16] LABS: FREE KAPPA LIGHT CHAINS SERUM 333.4 mg/L (3.3-19.4); FREE LAMBDA LIGHT CHAINS SERUM 41.7 mg/L (5.7-26.3)
== END ==
LOC: M SFHCCLAY 09:04
PROVIDERS: ATTEND Family Medicine
DX: D47.2 Monoclonal gammopathy (principal); E55.9 Vitamin D deficiency, unspecified; E53.8 Deficiency of other specified B group vitamins; Z12.5 Encounter for screening for malignant neoplasm of prostate; I50.32 Chronic diastolic (congestive) heart failure; Z79.01 Long term (current) use of anticoagulants; Z79.899 Other long term (current) drug therapy
CPT/HCPCS: 80053; 82306; 82607; 83521; 83735; 83880; 83970; 85025; 85046; G0103

== ENCOUNTER → 2021-08-23 | Outpatient (REF) | payer MEDICARE ==
[2021-08-23 16:54] LABS: INR 3.06; PROTHROMBIN TIME 31.9 SECONDS (12.7-14.5)
== END ==
LOC: M LABDRAWC 15:57
PROVIDERS: ATTEND Internal Medicine
DX: I48.91 Unspecified atrial fibrillation (principal); Z79.01 Long term (current) use of anticoagulants; Z95.2 Presence of prosthetic heart valve

== ENCOUNTER → 2021-09-06 | Outpatient (REF) | payer MEDICARE ==
[2021-09-06 12:16] LABS: CALCIUM LEVEL 10.1 MG/DL (8.8-10.2); CREATININE FOR GFR 1.88 MG/DL (0.70-1.30); GLOMERULAR FILTRATION RATE 37.4 (>42); POTASSIUM SERUM 4.6 MEQ/L (3.5-5.1)
== END ==
LOC: M LABDRAWC 11:17
PROVIDERS: ATTEND Physician Assistant
DX: I48.91 Unspecified atrial fibrillation (principal); I50.9 Heart failure, unspecified

== ENCOUNTER → 2021-09-06 | Outpatient (REF) | payer MEDICARE ==
[2021-09-06 11:44] LABS: HEMATOCRIT 39.4 % (42.0-52.0); HEMOGLOBIN 12.3 g/dl (13.5-17.5); MEAN CORPUSCULAR HEMOGLOBIN 33.5 pg (27.0-33.0); MEAN CORPUSCULAR HGB CONC 31.2 g/dl (32.0-36.5); MEAN CORPUSCULAR VOLUME 107.4 fl (80.0-96.0); PLATELET COUNT, AUTOMATED 196 10^3/uL (150-450); RED BLOOD COUNT 3.67 10^6/uL (4.30-6.10)
[2021-09-06 12:03] LABS: INR 3.86; PROTHROMBIN TIME 38.1 SECONDS (12.7-14.5)
[2021-09-06 12:35] LABS: ALBUMIN 3.8 GM/DL (3.2-5.2); BILIRUBIN,TOTAL 0.8 MG/DL (0.2-1.0); CALCIUM LEVEL 9.6 MG/DL (8.8-10.2); CHOLESTEROL RISK RATIO 3.85 (<5); CREATININE FOR GFR 1.92 MG/DL (0.70-1.30); GLOMERULAR FILTRATION RATE 36.5 (>42); POTASSIUM SERUM 4.5 MEQ/L (3.5-5.1); PROSTATIC SPECIFIC AG MONITOR 0.46 NG/ML (< 4.00); THYROID STIMULATING HORMONE 1.4 uIU/ML (0.358-3.740); TOTAL PROTEIN 8.4 GM/DL (6.4-8.2)
== END ==
LOC: M LABDRAWC 11:13
PROVIDERS: ATTEND Family Medicine
DX: I11.0 Hypertensive heart disease with heart failure (principal); I50.9 Heart failure, unspecified; I25.10 Atherosclerotic heart disease of native coronary artery without angina pectoris; D64.9 Anemia, unspecified; Z51.81 Encounter for therapeutic drug level monitoring; Z79.899 Other long term (current) drug therapy; I48.91 Unspecified atrial fibrillation

== ENCOUNTER → 2021-10-18 | Outpatient (REF) | payer MEDICARE ==
[2021-10-18 11:50] LABS: INR 1.93; PROTHROMBIN TIME 22.5 SECONDS (12.7-14.5)
== END ==
LOC: M LABDRAWC 11:12
PROVIDERS: ATTEND Internal Medicine
DX: Z79.01 Long term (current) use of anticoagulants (principal); I48.91 Unspecified atrial fibrillation

== ENCOUNTER → 2021-11-02 | Outpatient (REF) | payer MEDICARE ==
[2021-11-02 13:37] LABS: INR 2.77; PROTHROMBIN TIME 29.6 SECONDS (12.7-14.5)
== END ==
LOC: M LABDRAWC 12:55
PROVIDERS: ATTEND Internal Medicine
DX: Z79.01 Long term (current) use of anticoagulants (principal); Z95.2 Presence of prosthetic heart valve; I48.91 Unspecified atrial fibrillation

== ENCOUNTER → 2021-12-13 | Outpatient (REF) | payer MEDICARE ==
[2021-12-13 18:20] LABS: INR 4.23; PROTHROMBIN TIME 40.9 SECONDS (12.7-14.5)
== END ==
LOC: M LABDRAWC 17:23
PROVIDERS: ATTEND Internal Medicine
DX: Z79.01 Long term (current) use of anticoagulants (principal); Z95.2 Presence of prosthetic heart valve; I48.91 Unspecified atrial fibrillation

== ENCOUNTER → 2021-12-27 | Outpatient (REF) | payer MEDICARE ==
[2021-12-27 17:45] LABS: INR 2.78; PROTHROMBIN TIME 29.7 SECONDS (12.7-14.5)
== END ==
LOC: M LABDRAWC 16:56
PROVIDERS: ATTEND Internal Medicine
DX: I48.91 Unspecified atrial fibrillation (principal); Z79.01 Long term (current) use of anticoagulants; Z95.2 Presence of prosthetic heart valve

== ENCOUNTER → 2022-01-17 | Outpatient (REF) | payer MEDICARE ==
[2022-01-17 17:50] LABS: INR 4.19; PROTHROMBIN TIME 40.6 SECONDS (12.7-14.5)
== END ==
LOC: M LABDRAWC 17:04
PROVIDERS: ATTEND Internal Medicine
DX: I48.91 Unspecified atrial fibrillation (principal); Z79.01 Long term (current) use of anticoagulants; Z95.2 Presence of prosthetic heart valve

== ENCOUNTER → 2022-01-17 | Outpatient (REF) | payer MEDICARE ==
[2022-01-17 18:10] LABS: HEMOGLOBIN A1c 5.2 %
[2022-01-17 18:23] LABS: ALBUMIN 3.6 GM/DL (3.2-5.2); BILIRUBIN,TOTAL 0.5 MG/DL (0.2-1.0); CALCIUM LEVEL 9.5 MG/DL (8.8-10.2); CHOLESTEROL RISK RATIO 2.611 (<5); CREATININE FOR GFR 1.76 MG/DL (0.70-1.30); FREE T4 1.13 NG/DL (0.76-1.46); GLOMERULAR FILTRATION RATE 40.3 (>42); MAGNESIUM LEVEL 2.5 MG/DL (1.8-2.4); POTASSIUM SERUM 4.4 MEQ/L (3.5-5.1); THYROID STIMULATING HORMONE 1.33 uIU/ML (0.358-3.740); TOTAL PROTEIN 7.8 GM/DL (6.4-8.2)
[2022-01-19 20:33] LABS: PTH INTACT 139.5 PG/ML (18.5-88.0)
== END ==
LOC: M SFHCCLAY 09:57
PROVIDERS: ATTEND Family Medicine
DX: E78.2 Mixed hyperlipidemia (principal); R73.01 Impaired fasting glucose; E55.9 Vitamin D deficiency, unspecified; I10 Essential (primary) hypertension

== ENCOUNTER → 2022-01-31 | Outpatient (REF) | payer MEDICARE ==
[2022-01-31 12:34] LABS: INR 2.56; PROTHROMBIN TIME 27.9 SECONDS (12.5-14.5)
== END ==
LOC: M LABDRAWC 11:27
PROVIDERS: ATTEND Internal Medicine
DX: I48.91 Unspecified atrial fibrillation (principal); Z79.01 Long term (current) use of anticoagulants; Z95.2 Presence of prosthetic heart valve

== ENCOUNTER → 2022-01-31 | Outpatient (REF) | payer MEDICARE | LOC: M SFHCCLAY 11:24 | PROVIDERS: ATTEND Family Medicine | DX: E55.9 Vitamin D deficiency, unspecified (principal) ==

== ENCOUNTER → 2022-02-28 | Outpatient (REF) | payer MEDICARE ==
[2022-02-28 18:19] LABS: INR 2.39; PROTHROMBIN TIME 26.5 SECONDS (12.5-14.5)
== END ==
LOC: M LABDRAWC 17:04
PROVIDERS: ATTEND Internal Medicine
DX: Z79.01 Long term (current) use of anticoagulants (principal); Z95.2 Presence of prosthetic heart valve; I48.91 Unspecified atrial fibrillation

== ENCOUNTER → 2022-03-28 | Outpatient (REF) | payer MEDICARE ==
[2022-03-28 18:31] LABS: INR 3.39; PROTHROMBIN TIME 34.8 SECONDS (12.5-14.5)
== END ==
LOC: M LABDRAWC 17:24
PROVIDERS: ATTEND Internal Medicine
DX: Z79.01 Long term (current) use of anticoagulants (principal); Z95.2 Presence of prosthetic heart valve; I48.91 Unspecified atrial fibrillation

== ENCOUNTER → 2022-04-25 | Outpatient (REF) | payer MEDICARE ==
[2022-04-25 12:34] LABS: CREATININE FOR GFR 1.83 MG/DL (0.70-1.30); FREE T4 1.4 NG/DL (0.89-1.76); GLOMERULAR FILTRATION RATE 38.5 (>42); POTASSIUM SERUM 4.9 MMOL/L (3.5-5.1); THYROID STIMULATING HORMONE 1.153 uIU/ML (0.55-4.78)
== END ==
LOC: M LABDRAWC 11:34
PROVIDERS: ATTEND Internal Medicine Cardiovascular Disease
DX: I48.0 Paroxysmal atrial fibrillation (principal); I47.20 Ventricular tachycardia, unspecified; I48.92 Unspecified atrial flutter; I50.32 Chronic diastolic (congestive) heart failure

== ENCOUNTER → 2022-04-25 | Outpatient (REF) | payer MEDICARE ==
[2022-04-25 12:07] LABS: BASO % 0.5 % (0.0-1.0); EOS # 0.3 10^3/uL (0.0-0.5); EOS % 5.7 % (0.0-3.0); HEMATOCRIT 37.6 % (42.0-52.0); HEMOGLOBIN 11.7 g/dl (13.5-17.5); LYMPH # 0.6 10^3/uL (1.5-5.0); LYMPH % 9.4 % (24.0-44.0); MEAN CORPUSCULAR HEMOGLOBIN 33.1 pg (27.0-33.0); MEAN CORPUSCULAR HGB CONC 31.1 g/dl (32.0-36.5); MEAN CORPUSCULAR VOLUME 106.5 fl (80.0-96.0); MONO # 0.5 10^3/uL (0.0-0.8); MONO % 7.9 % (2.0-8.0); NEUTROPHILS # 4.4 10^3/uL (1.5-8.5); NEUTROPHILS % 76.2 % (36.0-66.0); PLATELET COUNT, AUTOMATED 297 10^3/uL (150-450); RED BLOOD COUNT 3.53 10^6/uL (4.30-6.10); WHITE BLOOD COUNT 5.8 10^3/uL (4.0-10.0)
[2022-04-25 12:19] LABS: HEMOGLOBIN A1c 4.8 % (4.0-6.0)
[2022-04-25 12:25] LABS: TOTAL PROTEIN,RANDOM URINE 8.5 MG/DL (0.0-14.0)
[2022-04-25 12:30] LABS: CREATININE,RANDOM URINE 32.5 MG/DL
[2022-04-25 12:31] LABS: MAGNESIUM LEVEL 2.4 MG/DL (1.8-2.4)
[2022-04-25 12:33] LABS: ALBUMIN 3.6 G/DL (3.2-5.2); BILIRUBIN,TOTAL 0.6 MG/DL (0.3-1.2); CALCIUM LEVEL 9.9 MG/DL (8.3-10.6); CREATININE FOR GFR 1.83 MG/DL (0.70-1.30); GLOMERULAR FILTRATION RATE 38.5 (>42); POTASSIUM SERUM 4.3 MMOL/L (3.5-5.1); TOTAL PROTEIN 8.6 G/DL (5.7-8.2)
[2022-04-25 12:35] LABS: FERRITIN 90.8 NG/ML (10.5-307.3)
[2022-05-01 19:07] LABS: ALBUMIN 3.5 g/dL (2.9-4.4); ALPHA-1-GLOBULINS 0.4 g/dL (0.0-0.4); ALPHA-2-GLOBULINS 0.7 g/dL (0.4-1.0); BETA-1-GLOBULINS 1.2 g/dL (0.7-1.3); GAMMA GLOBULINS 2.5 g/dL (0.4-1.8); TOTAL PROTEIN ELECTROPHORESIS 8.4 g/dL (6.0-8.5)
== END ==
LOC: M SFHCCLAY 09:26
PROVIDERS: ATTEND Family Medicine
DX: I10 Essential (primary) hypertension (principal); D72.819 Decreased white blood cell count, unspecified; R73.01 Impaired fasting glucose; D47.2 Monoclonal gammopathy

== ENCOUNTER → 2022-04-25 | Outpatient (REF) | payer MEDICARE ==
[2022-04-25 12:20] LABS: INR 3.07; PROTHROMBIN TIME 32.2 SECONDS (12.5-14.5)
== END ==
LOC: M LABDRAWC 11:36
PROVIDERS: ATTEND Internal Medicine
DX: Z79.01 Long term (current) use of anticoagulants (principal); Z95.2 Presence of prosthetic heart valve; I48.91 Unspecified atrial fibrillation

== ENCOUNTER → 2022-05-23 | Outpatient (REF) | payer MEDICARE ==
[2022-05-23 18:05] LABS: INR 3.77; PROTHROMBIN TIME 37.8 SECONDS (12.5-14.5)
== END ==
LOC: M LABDRAWC 17:05
PROVIDERS: ATTEND Internal Medicine
DX: Z79.01 Long term (current) use of anticoagulants (principal); I48.91 Unspecified atrial fibrillation

== ENCOUNTER → 2022-06-06 | Outpatient (REF) | payer MEDICARE ==
[2022-06-06 18:15] LABS: INR 2.89; PROTHROMBIN TIME 30.7 SECONDS (12.5-14.5)
== END ==
LOC: M LABDRAWC 17:17
PROVIDERS: ATTEND Internal Medicine
DX: I48.91 Unspecified atrial fibrillation (principal); Z79.01 Long term (current) use of anticoagulants

== ENCOUNTER → 2022-06-15 | Outpatient (CLI) | payer MEDICARE | LOC: M PLAIMG 11:30 | PROVIDERS: ATTEND Internal Medicine Cardiovascular Disease | DX: I25.119 Atherosclerotic heart disease of native coronary artery with unspecified angina pectoris (principal); R06.02 Shortness of breath ==

== ENCOUNTER → 2022-06-20 | Outpatient (REF) | payer MEDICARE ==
[2022-06-20 17:27] LABS: INR 3.98; PROTHROMBIN TIME 39.4 SECONDS (12.5-14.5)
== END ==
LOC: M LABDRAWC 16:42
PROVIDERS: ATTEND Internal Medicine
DX: I48.91 Unspecified atrial fibrillation (principal); Z79.01 Long term (current) use of anticoagulants

== ENCOUNTER → 2022-07-25 | Outpatient (REF) | payer MEDICARE ==
[2022-07-25 12:16] LABS: INR 2.77; PROTHROMBIN TIME 29.7 SECONDS (12.5-14.5)
== END ==
LOC: M LABDRAWC 11:04
PROVIDERS: ATTEND Internal Medicine
DX: I48.91 Unspecified atrial fibrillation (principal); Z79.01 Long term (current) use of anticoagulants

== ENCOUNTER → 2022-08-22 | Outpatient (REF) | payer MEDICARE ==
[2022-08-22 18:08] LABS: CALCIUM LEVEL 10.2 MG/DL (8.3-10.6); CREATININE FOR GFR 1.83 MG/DL (0.70-1.30); GLOMERULAR FILTRATION RATE 38.5 (>42); POTASSIUM SERUM 4.5 MMOL/L (3.5-5.1)
== END ==
LOC: M LABDRAWC 17:16
PROVIDERS: ATTEND Internal Medicine Cardiovascular Disease
DX: I48.0 Paroxysmal atrial fibrillation (principal); I50.32 Chronic diastolic (congestive) heart failure; Z79.01 Long term (current) use of anticoagulants

== ENCOUNTER → 2022-09-26 | Outpatient (REF) | payer MEDICARE ==
[2022-09-26 11:51] LABS: INR 4.16; PROTHROMBIN TIME 40.8 SECONDS (12.5-14.5)
== END ==
LOC: M LABDRAWC 11:00
PROVIDERS: ATTEND Internal Medicine
DX: Z79.01 Long term (current) use of anticoagulants (principal); I48.91 Unspecified atrial fibrillation

== ENCOUNTER → 2022-10-10 | Outpatient (REF) | payer MEDICARE ==
[2022-10-10 18:09] LABS: INR 4.09; PROTHROMBIN TIME 40.3 SECONDS (12.5-14.5)
== END ==
LOC: M LABDRAWC 16:55
PROVIDERS: ATTEND Internal Medicine
DX: Z79.01 Long term (current) use of anticoagulants (principal); I48.91 Unspecified atrial fibrillation

== ENCOUNTER → 2022-10-24 | Outpatient (REF) | payer MEDICARE ==
[2022-10-24 17:28] LABS: INR 3.13; PROTHROMBIN TIME 32.7 SECONDS (12.5-14.5)
== END ==
LOC: M LABDRAWC 16:44
PROVIDERS: ATTEND Internal Medicine
DX: Z79.01 Long term (current) use of anticoagulants (principal); I48.91 Unspecified atrial fibrillation

== ENCOUNTER → 2022-10-24 | Outpatient (REF) | payer MEDICARE ==
[2022-10-24 17:40] LABS: ALBUMIN 3.5 G/DL (3.2-5.2); ALKALINE PHOSPHATASE 91 U/L (46-116); ALT/SGPT < 9 U/L (7.0-40); AST/SGOT 18 U/L (<34); BILIRUBIN,DIRECT 0.2 MG/DL (<0.4); BILIRUBIN,TOTAL 0.6 MG/DL (0.3-1.2)
[2022-10-24 17:42] LABS: THYROID STIMULATING HORMONE 1.036 uIU/ML (0.55-4.78)
== END ==
LOC: M LABDRAWC 16:41
PROVIDERS: ATTEND Physician Assistant
DX: I48.0 Paroxysmal atrial fibrillation (principal); I50.32 Chronic diastolic (congestive) heart failure; Z79.01 Long term (current) use of anticoagulants; I47.20 Ventricular tachycardia, unspecified

== ENCOUNTER → 2022-11-21 | Outpatient (REF) | payer MEDICARE ==
[2022-11-21 18:09] LABS: INR 3.8
== END ==
LOC: M LABDRAWC 16:43 → M LAB REF 16:43
PROVIDERS: ATTEND Internal Medicine
DX: I48.91 Unspecified atrial fibrillation (principal); Z79.01 Long term (current) use of anticoagulants

== ENCOUNTER → 2022-12-26 | Outpatient (REF) | payer MEDICARE ==
[~2022-12-26] MED LIST changes: -AMIO400T5 PO; +AMIO400T6 PO
[2022-12-26 17:27] LABS: INR 4.24; PROTHROMBIN TIME 39.9 SECONDS (12.5-14.5)
== END ==
LOC: M LABDRAWC 16:55
PROVIDERS: ATTEND Internal Medicine
DX: I48.91 Unspecified atrial fibrillation (principal); Z79.01 Long term (current) use of anticoagulants

== ENCOUNTER → 2023-01-09 | Outpatient (REF) | payer MEDICARE ==
[2023-01-09 12:45] LABS: INR 2.63; PROTHROMBIN TIME 27.4 SECONDS (12.5-14.5)
== END ==
LOC: M LABDRAWC 11:44
PROVIDERS: ATTEND Internal Medicine
DX: I48.91 Unspecified atrial fibrillation (principal); Z79.01 Long term (current) use of anticoagulants

== ENCOUNTER → 2023-01-23 | Outpatient (REF) | payer MEDICARE ==
[2023-01-23 17:55] LABS: INR 2.94
== END ==
LOC: M LABDRAWC 16:48
PROVIDERS: ATTEND Internal Medicine
DX: I48.91 Unspecified atrial fibrillation (principal); Z79.01 Long term (current) use of anticoagulants

== ENCOUNTER → 2023-02-20 | Outpatient (REF) | payer MEDICARE ==
[2023-02-20 17:55] LABS: ALBUMIN 3.7 G/DL (3.2-5.2); BILIRUBIN,TOTAL 0.6 MG/DL (0.3-1.2); CALCIUM LEVEL 9.7 MG/DL (8.3-10.6); CHOLESTEROL RISK RATIO 2.34 (<5); CREATININE FOR GFR 1.47 MG/DL (0.70-1.30); GLOMERULAR FILTRATION RATE 49.5 (>42); HDL CHOLESTEROL 48.6 MG/DL (>40); LDL CHOLESTEROL 47.6 MG/DL (<100); MAGNESIUM LEVEL 2.2 MG/DL (1.8-2.4); NON-HDL-C 65.4 MG/DL; POTASSIUM SERUM 4.3 MMOL/L (3.5-5.1); TOTAL PROTEIN 7.5 G/DL (5.7-8.2)
[2023-02-22 08:10] LABS: LDL DIRECT 49 mg/dL (0-99)
== END ==
LOC: M LABDRAWC 17:00
PROVIDERS: ATTEND Registered Nurse
DX: E78.2 Mixed hyperlipidemia (principal); I48.0 Paroxysmal atrial fibrillation; I50.32 Chronic diastolic (congestive) heart failure; I48.4 Atypical atrial flutter; Z79.01 Long term (current) use of anticoagulants; I47.20 Ventricular tachycardia, unspecified

== ENCOUNTER → 2023-02-20 | Outpatient (REF) | payer MEDICARE ==
[2023-02-20 17:24] LABS: INR 2.85; PROTHROMBIN TIME 28.8 SECONDS (12.5-14.5)
== END ==
LOC: M LABDRAWC 17:04
PROVIDERS: ATTEND Internal Medicine
DX: I48.91 Unspecified atrial fibrillation (principal); Z79.01 Long term (current) use of anticoagulants

== ENCOUNTER → 2023-03-21 | Outpatient (REF) | payer MEDICARE | LOC: M SFHCPLAZ 18:25 | PROVIDERS: ATTEND Family Medicine | DX: D47.2 Monoclonal gammopathy (principal); I50.32 Chronic diastolic (congestive) heart failure; E55.9 Vitamin D deficiency, unspecified; E53.8 Deficiency of other specified B group vitamins; Z12.5 Encounter for screening for malignant neoplasm of prostate ==

== ENCOUNTER → 2023-03-27 | Outpatient (REF) | payer MEDICARE ==
[2023-03-27 17:14] LABS: INR 2.57; PROTHROMBIN TIME 26.7 SECONDS (12.5-14.5)
== END ==
LOC: M LABDRAWC 16:51
PROVIDERS: ATTEND Internal Medicine
DX: I48.91 Unspecified atrial fibrillation (principal); Z79.01 Long term (current) use of anticoagulants

== ENCOUNTER → 2023-04-24 | Outpatient (REF) | payer MEDICARE | LOC: M SFHCCLAY 10:09 | PROVIDERS: ATTEND Family Medicine | DX: Z53.9 Procedure and treatment not carried out, unspecified reason (principal); D47.2 Monoclonal gammopathy; I50.32 Chronic diastolic (congestive) heart failure; E55.9 Vitamin D deficiency, unspecified; E53.8 Deficiency of other specified B group vitamins; Z12.5 Encounter for screening for malignant neoplasm of prostate ==

== ENCOUNTER → 2023-04-24 | Outpatient (REF) | payer MEDICARE ==
[2023-04-24 19:35] LABS: CALCIUM LEVEL 9.4 MG/DL (8.3-10.6); CREATININE FOR GFR 1.44 MG/DL (0.70-1.30); GLOMERULAR FILTRATION RATE 50.6 (>42); POTASSIUM SERUM 4.2 MMOL/L (3.5-5.1)
== END ==
LOC: M LABDRAWC 17:06
PROVIDERS: ATTEND Internal Medicine Cardiovascular Disease
DX: I50.32 Chronic diastolic (congestive) heart failure (principal); R06.02 Shortness of breath

== ENCOUNTER → 2023-04-24 | Outpatient (REF) | payer MEDICARE ==
[2023-04-24 18:53] LABS: INR 2.92; PROTHROMBIN TIME 29.4 SECONDS (12.5-14.5)
== END ==
LOC: M LABDRAWC 17:03
PROVIDERS: ATTEND Internal Medicine
DX: I48.91 Unspecified atrial fibrillation (principal); Z79.01 Long term (current) use of anticoagulants

== ENCOUNTER → 2023-05-29 | Outpatient (REF) | payer MEDICARE ==
[2023-05-29 17:13] LABS: INR 2.09; PROTHROMBIN TIME 22.8 SECONDS (12.5-14.5)
== END ==
LOC: M LABDRAWC 16:22
PROVIDERS: ATTEND Internal Medicine
DX: I48.91 Unspecified atrial fibrillation (principal); Z79.01 Long term (current) use of anticoagulants

== ENCOUNTER → 2023-05-29 | Outpatient (REF) | payer MEDICARE ==
[2023-05-29 16:42] LABS: BASO % 0.7 % (0.0-1.0); EOS # 0.2 10^3/uL (0.0-0.5); HEMATOCRIT 36.2 % (42.0-52.0); HEMOGLOBIN 11.6 g/dl (13.5-17.5); LYMPH # 0.5 10^3/uL (1.5-5.0); LYMPH % 12.4 % (24.0-44.0); MEAN CORPUSCULAR VOLUME 102.8 fl (80.0-96.0); MONO # 0.3 10^3/uL (0.0-0.8); MONO % 7.4 % (2.0-8.0); NEUTROPHILS % 74.3 % (36.0-66.0); PLATELET COUNT, AUTOMATED 208 10^3/uL (150-450); RED BLOOD COUNT 3.52 10^6/uL (4.30-6.10)
[2023-05-29 17:12] LABS: ALBUMIN 3.4 G/DL (3.2-5.2); BILIRUBIN,TOTAL 0.4 MG/DL (0.3-1.2); CALCIUM LEVEL 8.9 MG/DL (8.3-10.6); CREATININE FOR GFR 1.55 MG/DL (0.70-1.30); GLOMERULAR FILTRATION RATE 46.5 (>42); PSA SCREENING 0.45 NG/ML (< 4.00); TOTAL PROTEIN 6.9 G/DL (5.7-8.2)
[2023-05-29 17:16] LABS: FERRITIN 69.5 NG/ML (10.5-307.3)
== END ==
LOC: M LABDRAWC 16:20
PROVIDERS: ATTEND Family Medicine
DX: D47.2 Monoclonal gammopathy (principal); I50.32 Chronic diastolic (congestive) heart failure; E55.9 Vitamin D deficiency, unspecified; E53.8 Deficiency of other specified B group vitamins; I48.91 Unspecified atrial fibrillation; Z79.01 Long term (current) use of anticoagulants; Z12.5 Encounter for screening for malignant neoplasm of prostate
CPT/HCPCS: 36415; 80053; 82306; 82607; 82728; 83520; 83521; 83970; 85025; 85610; G0103

== ENCOUNTER → 2023-05-30 | Outpatient (REF) | payer MEDICARE | LOC: M LABDRAWC 16:40 | PROVIDERS: ATTEND Family Medicine | DX: D47.2 Monoclonal gammopathy (principal) ==

== ENCOUNTER → 2023-06-26 | Outpatient (REF) | payer MEDICARE ==
[~2023-06-26] MED LIST changes: -ASPI-161 PO; +ASPI-615 PO
[2023-06-26 17:42] LABS: INR 2.26; PROTHROMBIN TIME 24.1 SECONDS (12.5-14.5)
== END ==
LOC: M LABDRAWC 16:46
PROVIDERS: ATTEND Internal Medicine
DX: Z79.01 Long term (current) use of anticoagulants (principal); I48.91 Unspecified atrial fibrillation

== ENCOUNTER → 2023-07-24 | Outpatient (REF) | payer MEDICARE ==
[2023-07-24 18:02] LABS: INR 1.92; PROTHROMBIN TIME 21.3 SECONDS (12.5-14.5)
== END ==
LOC: M LABDRAWC 16:51
PROVIDERS: ATTEND Internal Medicine
DX: I48.91 Unspecified atrial fibrillation (principal); Z79.01 Long term (current) use of anticoagulants

== ENCOUNTER → 2023-08-07 | Outpatient (REF) | payer MEDICARE ==
[2023-08-07 17:59] LABS: INR 2.84; PROTHROMBIN TIME 28.8 SECONDS (12.5-14.5)
== END ==
LOC: M LABDRAWC 17:27
PROVIDERS: ATTEND Internal Medicine
DX: I48.91 Unspecified atrial fibrillation (principal); Z79.01 Long term (current) use of anticoagulants

== ENCOUNTER → 2023-08-27 | Outpatient (REF) | payer MEDICARE ==
[2023-08-27 17:37] LABS: CALCIUM LEVEL 9.7 MG/DL (8.3-10.6); CREATININE FOR GFR 1.9 MG/DL (0.70-1.30); GLOMERULAR FILTRATION RATE 36.8 (>42); POTASSIUM SERUM 4.4 MMOL/L (3.5-5.1)
== END ==
LOC: M LABDRAWC 16:38
PROVIDERS: ATTEND Internal Medicine Cardiovascular Disease
DX: I50.32 Chronic diastolic (congestive) heart failure (principal); R06.02 Shortness of breath

== ENCOUNTER → 2023-08-27 | Outpatient (REF) | payer MEDICARE ==
[2023-08-27 17:19] LABS: INR 3.43; PROTHROMBIN TIME 33.3 SECONDS (12.5-14.5)
== END ==
LOC: M LABDRAWC 16:40
PROVIDERS: ATTEND Student in an Organized Health Care Education/Training Program
DX: Z79.01 Long term (current) use of anticoagulants (principal); I48.91 Unspecified atrial fibrillation

== ENCOUNTER → 2023-10-02 | Outpatient (REF) | payer MEDICARE ==
[2023-10-02 17:22] LABS: INR 2.24; PROTHROMBIN TIME 23.9 SECONDS (12.5-14.5)
== END ==
LOC: M LABDRAWC 16:38
PROVIDERS: ATTEND Student in an Organized Health Care Education/Training Program
DX: I48.91 Unspecified atrial fibrillation (principal); Z79.01 Long term (current) use of anticoagulants

== ENCOUNTER → 2023-10-30 | Outpatient (REF) | payer MEDICARE ==
[2023-10-30 12:12] LABS: INR 2.91; PROTHROMBIN TIME 29.3 SECONDS (12.5-14.5)
== END ==
LOC: M LABDRAWC 11:09
PROVIDERS: ATTEND Internal Medicine
DX: I48.91 Unspecified atrial fibrillation (principal); Z79.01 Long term (current) use of anticoagulants

== ENCOUNTER → 2023-11-27 | Outpatient (REF) | payer MEDICARE ==
[2023-11-27 11:16] LABS: INR 2.86; PROTHROMBIN TIME 28.9 SECONDS (12.5-14.5)
== END ==
LOC: M LABDRAWC 10:50
PROVIDERS: ATTEND Internal Medicine
DX: I48.91 Unspecified atrial fibrillation (principal); Z79.01 Long term (current) use of anticoagulants

== ENCOUNTER → 2023-12-25 | Outpatient (REF) | payer MEDICARE ==
[2023-12-25 11:49] LABS: INR 2.77; PROTHROMBIN TIME 28.3 SECONDS (12.5-14.5)
== END ==
LOC: M LABDRAWC 11:19
PROVIDERS: ATTEND Internal Medicine
DX: Z79.01 Long term (current) use of anticoagulants (principal); I48.91 Unspecified atrial fibrillation

== ENCOUNTER → 2024-01-09 | Outpatient (REF) | payer MEDICARE | LOC: M SFHCPLAZ 16:52 | PROVIDERS: ATTEND Family Medicine | DX: I50.32 Chronic diastolic (congestive) heart failure (principal); D47.2 Monoclonal gammopathy ==

== ENCOUNTER → 2024-03-16 | Outpatient (REF) | payer MEDICARE ==
[2024-03-16 11:35] LABS: INR 3.23; PROTHROMBIN TIME 32.8 SECONDS (12.5-14.5)
== END ==
LOC: M LABDRAWC 11:15
PROVIDERS: ATTEND Student in an Organized Health Care Education/Training Program
DX: Z79.01 Long term (current) use of anticoagulants (principal); I48.91 Unspecified atrial fibrillation

== ENCOUNTER → 2024-04-30 | Outpatient (REF) | payer MEDICARE ==
[~2024-04-30] MED LIST changes: +AMIO400T14 PO; -AMIO400T6 PO
[2024-04-30 11:54] LABS: INR 2.16; PROTHROMBIN TIME 24.2 SECONDS (12.5-14.5)
== END ==
LOC: M LABDRAWC 10:58
PROVIDERS: ATTEND Internal Medicine
DX: I48.91 Unspecified atrial fibrillation (principal); Z79.01 Long term (current) use of anticoagulants

== ENCOUNTER → 2024-05-20 | Outpatient (REF) | payer MEDICARE ==
[2024-05-20 18:10] LABS: BASO % 0.3 % (0.0-1.0); EOS % 0.5 % (0.0-3.0); HEMATOCRIT 39.2 % (42.0-52.0); HEMOGLOBIN 12.9 g/dl (13.5-17.5); LYMPH # 0.5 10^3/uL (1.5-5.0); LYMPH % 7.9 % (24.0-44.0); MEAN CORPUSCULAR HEMOGLOBIN 33.6 pg (27.0-33.0); MEAN CORPUSCULAR HGB CONC 32.9 g/dl (32.0-36.5); MEAN CORPUSCULAR VOLUME 102.1 fl (80.0-96.0); MONO # 0.4 10^3/uL (0.0-0.8); MONO % 6.2 % (2.0-8.0); NEUTROPHILS # 5.6 10^3/uL (1.5-8.5); NEUTROPHILS % 84.8 % (36.0-66.0); PLATELET COUNT, AUTOMATED 251 10^3/uL (150-450); RED BLOOD COUNT 3.84 10^6/uL (4.30-6.10); WHITE BLOOD COUNT 6.6 10^3/uL (4.0-10.0)
[2024-05-20 18:15] LABS: C REACTIVE PROTEIN QUANTITATIV < 0.50 MG/DL (<1.0); RHEUMATOID FACTOR QUANT 4.6 IU/ML (<14)
[2024-05-20 18:16] LABS: ALBUMIN 3.8 G/DL (3.2-5.2); ALKALINE PHOSPHATASE 106 U/L (40-129); ALT/SGPT 16 U/L (7.0-40); AST/SGOT 15 U/L (<34); BILIRUBIN,TOTAL 0.5 MG/DL (0.3-1.2); BLOOD UREA NITROGEN 46 MG/DL (9-23); CARBON DIOXIDE LEVEL 27 MMOL/L (20-31); CHLORIDE LEVEL 106 MMOL/L (98-107); CHOLESTEROL LEVEL 104 MG/DL (<200); CHOLESTEROL RISK RATIO 2.17 (<5); CREATININE FOR GFR 1.71 MG/DL (0.70-1.30); FERRITIN 119.7 NG/ML (10.5-307.3); GLOMERULAR FILTRATION RATE 41.4 (>42); GLUCOSE, FASTING 92 MG/DL (74-106); HDL CHOLESTEROL 47.8 MG/DL (>40); LDL CHOLESTEROL 41.4 MG/DL (<100); NON-HDL-C 56.2 MG/DL; POTASSIUM SERUM 4.3 MMOL/L (3.5-5.1); SODIUM LEVEL 144 MMOL/L (136-145); TOTAL PROTEIN 8.3 G/DL (5.7-8.2); TRIGLYCERIDES LEVEL 74 MG/DL (<150); VITAMIN B12 LEVEL 1401 PG/ML (211-911)
[2024-05-20 18:17] LABS: ERYTHROCYTE SEDIMENTATION RATE 76 mm/hr (0-20); FREE T4 1.59 NG/DL (0.89-1.76); THYROID STIMULATING HORMONE 1.524 uIU/ML (0.55-4.78)
[2024-05-20 18:32] LABS: HEMOGLOBIN A1c 4.8 % (4.0-6.0)
[2024-05-22 19:47] LABS: PROTEIN, TOTAL SO 8.6 g/dL (6.1-8.1)
[2024-05-25 22:57] LABS: CYCLIC CITRULLINATED PEPTIDE < 16 UNITS (<20)
[2024-05-26 07:27] LABS: ANA PATTERN Nuclear, Speckled (NEGATIVE); ANA SCREEN, IFA POSITIVE (NEGATIVE); ANA TITER 1:40 titer (<1:40)
[2024-05-26 07:43] LABS: ALBUMIN SO 4.2 g/dL (3.8-4.8); ALPHA 1 GLOBULINS SO 0.4 g/dL (0.2-0.3); ALPHA 2 GLOBULINS SO 0.7 g/dL (0.5-0.9); BETA 2 GLOBULIN SO 0.4 g/dL (0.2-0.5); BETA GLOBULIN SO 0.5 g/dL (0.4-0.6); GAMMA GLOBULINS SO 2.4 g/dL (0.8-1.7); SPEP IFE ABN PROTEIN BAND 1 1.7 g/dL (NONE DETECTED)
== END ==
LOC: M SFHCPLAZ 10:19
PROVIDERS: ATTEND Family Medicine
DX: M19.049 Primary osteoarthritis, unspecified hand (principal); E53.8 Deficiency of other specified B group vitamins; D47.2 Monoclonal gammopathy; R73.01 Impaired fasting glucose; E78.2 Mixed hyperlipidemia; I50.32 Chronic diastolic (congestive) heart failure; I48.91 Unspecified atrial fibrillation; Z79.01 Long term (current) use of anticoagulants

== ENCOUNTER → 2024-05-20 | Outpatient (REF) | payer MEDICARE ==
[2024-05-20 17:16] LABS: INR 2.55; PROTHROMBIN TIME 27.4 SECONDS (12.5-14.5)
== END ==
LOC: M LABDRAWC 16:40
PROVIDERS: ATTEND Internal Medicine
DX: I48.91 Unspecified atrial fibrillation (principal); Z79.01 Long term (current) use of anticoagulants

== ENCOUNTER → 2024-06-24 | Outpatient (REF) | payer MEDICARE ==
[2024-06-24 12:40] LABS: INR 2.99; PROTHROMBIN TIME 30.9 SECONDS (12.5-14.5)
== END ==
LOC: M LAB REF 12:14
PROVIDERS: ATTEND Internal Medicine
DX: I48.91 Unspecified atrial fibrillation (principal); Z79.01 Long term (current) use of anticoagulants

== ENCOUNTER → 2024-08-05 | Outpatient (REF) | payer MEDICARE ==
[2024-08-05 16:56] LABS: INR 2.12; PROTHROMBIN TIME 23.8 SECONDS (12.5-14.5)
== END ==
LOC: M LABDRAWC 16:35
PROVIDERS: ATTEND Internal Medicine
DX: Z79.01 Long term (current) use of anticoagulants (principal); I48.91 Unspecified atrial fibrillation

== ENCOUNTER → 2024-08-19 | Outpatient (REF) | payer MEDICARE ==
[2024-08-19 14:26] LABS: INR 2.2; PROTHROMBIN TIME 24.5 SECONDS (12.5-14.5)
== END ==
LOC: M LABWUC 13:59
PROVIDERS: ATTEND Internal Medicine
DX: I48.91 Unspecified atrial fibrillation (principal); Z79.01 Long term (current) use of anticoagulants

== ENCOUNTER → 2024-09-02 | Outpatient (CLI) | payer MEDICARE ==
[2024-09-02 13:50] LABS: BASO % 0.3 % (0.0-1.0); EOS # 0.1 10^3/uL (0.0-0.5); EOS % 1.2 % (0.0-3.0); HEMATOCRIT 39.4 % (42.0-52.0); HEMOGLOBIN 12.9 g/dl (13.5-17.5); LYMPH # 0.5 10^3/uL (1.5-5.0); LYMPH % 8.9 % (24.0-44.0); MEAN CORPUSCULAR HEMOGLOBIN 34.5 pg (27.0-33.0); MEAN CORPUSCULAR HGB CONC 32.7 g/dl (32.0-36.5); MEAN CORPUSCULAR VOLUME 105.3 fl (80.0-96.0); MONO # 0.5 10^3/uL (0.0-0.8); MONO % 7.9 % (2.0-8.0); NEUTROPHILS # 4.9 10^3/uL (1.5-8.5); NEUTROPHILS % 81.4 % (36.0-66.0); PLATELET COUNT, AUTOMATED 223 10^3/uL (150-450); RED BLOOD COUNT 3.74 10^6/uL (4.30-6.10)
[2024-09-02 13:57] LABS: INR 2.82; PROTHROMBIN TIME 29.6 SECONDS (12.5-14.5)
== END ==
LOC: M WUC 12:05
PROVIDERS: ATTEND Family Medicine
DX: Z95.2 Presence of prosthetic heart valve (principal); Z79.01 Long term (current) use of anticoagulants

== ENCOUNTER → 2024-10-28 | Outpatient (REF) | payer MEDICARE ==
[~2024-10-28] MED LIST changes: -AMIO200T49 PO; +AMIO200T54 PO
[2024-10-28 14:10] LABS: INR 3.53
== END ==
LOC: M LABWUC 13:41
PROVIDERS: ATTEND Student in an Organized Health Care Education/Training Program
DX: I48.91 Unspecified atrial fibrillation (principal); Z51.81 Encounter for therapeutic drug level monitoring

== ENCOUNTER → 2024-12-09 | Outpatient (REF) | payer MEDICARE ==
[2024-12-09 14:42] LABS: INR 3.73
== END ==
LOC: M LABWUC 14:18
PROVIDERS: ATTEND Student in an Organized Health Care Education/Training Program
DX: I48.91 Unspecified atrial fibrillation (principal); Z51.81 Encounter for therapeutic drug level monitoring

== ENCOUNTER → 2025-02-03 | Outpatient (CLI) | payer MEDICARE ==
[2025-02-03 14:34] LABS: INR 2.51
== END ==
LOC: M WUC 11:02
PROVIDERS: ATTEND Student in an Organized Health Care Education/Training Program
DX: I48.91 Unspecified atrial fibrillation (principal)

== ENCOUNTER → 2025-03-12 | Outpatient (CLI) | payer MEDICARE ==
[2025-03-12 18:29] LABS: ALT/SGPT 15.0 U/L (7.0-40); AST/SGOT 21.0 U/L (<34); CALCIUM LEVEL 10.2 MG/DL (8.3-10.6); CARBON DIOXIDE LEVEL 31.0 MMOL/L (20-31); CHLORIDE LEVEL 105.0 MMOL/L (98-107); CHOLESTEROL LEVEL 123.0 MG/DL (<200); CHOLESTEROL RISK RATIO 2.34 (<5); CREATININE FOR GFR 1.68 MG/DL (0.70-1.30); GLOMERULAR FILTRATION RATE 41.1 (>42); LDL CHOLESTEROL 49.9 MG/DL (<100); MAGNESIUM LEVEL 2.3 MG/DL (1.8-2.4); NON-HDL-C 70.5 MG/DL; POTASSIUM SERUM 4.0 MMOL/L (3.5-5.1); PSA SCREENING 0.67 NG/ML (< 4.00); SODIUM LEVEL 145.0 MMOL/L (136-145); TRIGLYCERIDES LEVEL 103.0 MG/DL (<150)
[2025-03-12 18:30] LABS: IRON (FE) 52.0 UG/DL (65-175); PERCENT SATURATION 17.0 % (19.7-50.0); PTH INTACT 174.7 PG/ML (18.5-88.0)
[2025-03-12 18:34] LABS: TOTAL 25(OH) VITAMIN D 43.4 NG/ML (20.0-100.0)
[2025-03-12 18:35] LABS: FREE T4 1.51 NG/DL (0.89-1.76)
[2025-03-12 18:37] LABS: BASO # 0.0 10^3/uL (0.0-0.2); BASO % 0.6 % (0.0-1.0); EOS # 0.1 10^3/uL (0.0-0.5); EOS % 1.8 % (0.0-3.0); LYMPH # 0.6 10^3/uL (1.5-5.0); LYMPH % 11.5 % (24.0-44.0); MONO # 0.5 10^3/uL (0.0-0.8); MONO % 8.3 % (2.0-8.0); NEUTROPHILS # 4.2 10^3/uL (1.5-8.5); NEUTROPHILS % 77.6 % (36.0-66.0); PLATELET COUNT, AUTOMATED 228 10^3/uL (150-450)
[2025-03-12 18:39] LABS: VITAMIN B12 LEVEL 437.0 PG/ML (211-911)
[2025-03-14 08:18] LABS: PROTEIN, TOTAL SO 7.4 g/dL (6.1-8.1)
[2025-03-15 13:52] LABS: FREE KAPPA LIGHT CHAINS SERUM 285.5 mg/L (3.3-19.4); FREE LAMBDA LIGHT CHAINS SERUM 18.7 mg/L (5.7-26.3); KAPPA/LAMBDA RATIO SERUM 15.27 (0.26-1.65)
[2025-03-16 06:22] LABS: ALBUMIN SO 4.0 g/dL (3.8-4.8); ALPHA 1 GLOBULINS SO 0.4 g/dL (0.2-0.3); ALPHA 2 GLOBULINS SO 0.6 g/dL (0.5-0.9); BETA 2 GLOBULIN SO 0.4 g/dL (0.2-0.5); BETA GLOBULIN SO 0.4 g/dL (0.4-0.6); GAMMA GLOBULINS SO 1.6 g/dL (0.8-1.7); SPEP IFE ABN PROTEIN BAND 1 1.3 g/dL (NONE DETECTED)
== END ==
LOC: M PLALAB 14:59
PROVIDERS: ATTEND Family Medicine
DX: I50.32 Chronic diastolic (congestive) heart failure (principal); E53.8 Deficiency of other specified B group vitamins; E78.2 Mixed hyperlipidemia; E55.9 Vitamin D deficiency, unspecified; D47.2 Monoclonal gammopathy; Z12.5 Encounter for screening for malignant neoplasm of prostate